=== PATIENT | female | born 1940 | race Caucasian/White ===

== ENCOUNTER → 2018-01-01 13:25 | Outpatient (CLI) | payer MEDICARE, SELFPAY ==
--- NOTE | 2018-01-01 | DI.MG.S_ITS ---
BILATERAL DIGITAL SCREENING MAMMOGRAM 3D/2D WITH CAD: 01/01/2018 CLINICAL: Routine screening. Family history of breast cancer. Comparison is made to exams dated: 12/16/2016 mammogram, 12/10/2015 mammogram, and 12/05/2014 mammogram - [facility]. The tissue of both breasts is heterogeneously dense. This may lower the sensitivity of mammography. Current study was also evaluated with a Computer Aided Detection (CAD) system. There is a new irregular equal density architectural distortion with an indistinct margin in the right breast at 11 o'clock anterior depth. No other significant masses, calcifications, or other findings are seen in either breast. IMPRESSION: INCOMPLETE: NEEDS ADDITIONAL IMAGING EVALUATION The new irregular equal density architectural distortion in the right breast is indeterminate. Mediolateral and spot compression views as well as additional views with possible ultrasound are recommended. This exam was interpreted at Station ID: [id number]. NOTE: For mammograms, a report in lay terms will be sent to the patient. Approximately 15% of breast malignancies will not be visualized mammographically. In the management of a palpable breast mass, a negative mammogram must not discourage biopsy of a clinically suspicious lesion. Electronically Signed By: Sterling prieto/bassem:01/01/2018 16:49:21 letter sent: Additional Imaging Needed ACR BI-RADS Category 0: Incomplete [id number]
== END ==
PROVIDERS: PCP Physician Assistant; Visit Provider Physician Assistant
DX: Z12.31 Encounter for screening mammogram for malignant neoplasm of breast (principal); Z80.3 Family history of malignant neoplasm of breast; R92.8 Other abnormal and inconclusive findings on diagnostic imaging of breast
CPT/HCPCS: 77063; 77067

== ENCOUNTER → 2018-01-15 08:53 | Outpatient (CLI) | payer MEDICARE, SELFPAY ==
--- NOTE | 2018-01-15 | DI.US.S_ITS ---
ULTRASOUND OF RIGHT BREAST: 01/15/2018 CLINICAL: Patient returns for additional imaging over a suspected mass in the right breast. Comparison is made to exams dated: 01/15/2018 mammogram, 01/01/2018 mammogram, and 12/16/2016 mammogram - [facility]. Color flow ultrasound of the right breast was performed. [place] scale images of the real-time examination were reviewed. There is a 2.7 cm x 1.5 cm x 1.3 cm irregular mass with an indistinct margin in the right breast at 10 o'clock middle depth 9 cm from the nipple. No sonographic abnormality in the right axilla including no abnormal lymph nodes on ultrasound. IMPRESSION: SUSPICIOUS OF MALIGNANCY - FOLLOW-UP RECOMMENDED The 2.7 cm x 1.5 cm x 1.3 cm irregular mass in the right breast is suspicious of malignancy. An ultrasound guided biopsy is recommended. Recommend tomosynthesis post biopsy images to demonstrate concordance with mammographic finding. If finding is not concordant, stereotactic biopsy or surgical excision may be needed. Findings and recommendations discussed in person with the patient by Dr. Palencia of the department of radiology at the time of the examination. This exam was interpreted at Station ID: [id number]. Electronically Signed By: Gary Cuadra M.D. cj/:01/15/2018 14:13:30 letter sent: Biopsy Required Ultrasound BI-RADS: 4 Suspicious abnormality
--- NOTE | 2018-01-15 | DI.MG.S_ITS ---
UNILATERAL RIGHT DIGITAL DIAGNOSTIC MAMMOGRAM 3D/2D: 01/15/2018 CLINICAL: Additional evaluation requested from prior study. Family history of breast cancer. Comparison is made to exams dated: 01/01/2018 mammogram, 12/16/2016 mammogram, and 12/10/2015 mammogram - [facility]. The tissue of the right breast is heterogeneously dense. This may lower the sensitivity of mammography. There is 1.5 cm architectural distortion in the right breast at 10 o'clock middle depth. No other significant masses or calcifications are seen in the breast. IMPRESSION: INCOMPLETE: NEEDS ADDITIONAL IMAGING EVALUATION The 1.5 cm architectural distortion in the right breast is indeterminate. An ultrasound is recommended. This exam was interpreted at Station ID: [id number]. NOTE: For mammograms, a report in lay terms will be sent to the patient. Approximately 15% of breast malignancies will not be visualized mammographically. In the management of a palpable breast mass, a negative mammogram must not discourage biopsy of a clinically suspicious lesion. Electronically Signed By: Gary phillips/bassem:01/15/2018 14:10:16 ACR BI-RADS Category 0: Incomplete [id number]
== END ==
PROVIDERS: PCP Physician Assistant; Visit Provider Physician Assistant
DX: R92.2 Inconclusive mammogram (principal); N63.10 Unspecified lump in the right breast, unspecified quadrant; Z80.3 Family history of malignant neoplasm of breast
CPT/HCPCS: 76642; 77065; G0279

== ENCOUNTER → 2018-01-30 12:13 | Outpatient (CLI) | payer MEDICARE, SELFPAY ==
--- NOTE | 2018-01-30 | DI.US.S_ITS ---
ULTRASOUND GUIDED BIOPSY RIGHT BREAST USING VACUUM DEVICE WITH MARKING DEVICE INSERTED AND POST MAMMOGRAPHIC IMAGIN01/30/2018 CLINICAL: Right breast mass. PATIENT CONSENT: Risks (minor bleeding, infection, vasovagal reaction and repeat procedure), benefits and alternatives were explained to the patient and written informed consent was obtained. Correlation is made to exams dated: 01/15/2018 ultrasound, 01/15/2018 mammogram, 01/01/2018 mammogram, 12/16/2016 mammogram, 12/10/2015 mammogram, and 12/05/2014 mammogram - [facility]. An ultrasound guided biopsy using real-time ultrasound was performed for the 1.5 cm x 2.3 cm x 1.7 cm circumscribed oval mass located in the right breast at 10 o'clock middle depth. This was described on the previous mammography and ultrasound reports. The skin was prepped in the usual manner. Local anesthetic was administered to the access site. A skin salma was made in the breast. The abnormality was approached from the lateral aspect. A 13 gauge biopsy needle was placed adjacent to the abnormality under ultrasound guidance. Once the needle was documented to be in the correct location, four specimens were obtained using the Mammotome biopsy system. The patient received additional local anesthetic during the procedure. A titanium clip was inserted into the biopsy cavity. A skin closure strip and a sterile dressing were applied to the access site. Post procedure mammographic imaging demonstrates the clip at the targeted area. The specimens were sent to the laboratory for pathological analysis. IMPRESSION: ULTRASOUND GUIDED BIOPSY BENIGN Ultrasound guided biopsy of the 1.5 cm x 2.3 cm x 1.7 cm mass in the right breast at 10 o'clock middle depth was successful. Pathology results indicated benign breast tissue. However, the results are discordant with the mammographic finding of architectural distortion and a surgical biopsy is recommended of the mammographic finding. Findings discussed with Mary Ann Hinds on 02/07/18 at 11:05 AM. This exam was interpreted at Station ID: [id number]. Blanco tripp,conner/:02/07/2018 11:12:34
--- NOTE | 2018-01-30 | DI.MG.S_ITS ---
UNILATERAL RIGHT DIGITAL DIAGNOSTIC MAMMOGRAM 3D/2D: 01/30/2018 CLINICAL: Right breast mass. Post clip placement. Comparison is made to exams dated: 01/15/2018 mammogram, 01/01/2018 mammogram, and 12/16/2016 mammogram - [facility]. The tissue of the right breast is heterogeneously dense. This may lower the sensitivity of mammography. There is a marker clip in the appropriate position in the right breast at 10 o'clock middle depth. This marker clip placement is at biopsy site. This correlates with ultrasound findings. IMPRESSION: POST PROCEDURE MAMMOGRAM FOR MARKER PLACEMENT There was a successful marker clip placement in the right breast middle depth. This exam was interpreted at Station ID: [id number]. NOTE: For mammograms, a report in lay terms will be sent to the patient. Approximately 15% of breast malignancies will not be visualized mammographically. In the management of a palpable breast mass, a negative mammogram must not discourage biopsy of a clinically suspicious lesion. Electronically Signed By: Blanco tripp/bassem:01/30/2018 16:37:29 ACR BI-RADS Category Post-procedure mammogram for marker placement
== END ==
PROVIDERS: PCP Physician Assistant; Visit Provider Physician Assistant
DX: N63.0 Unspecified lump in unspecified breast (principal)
CPT/HCPCS: 19083; 77065; G0279

== ENCOUNTER 2018-03-15 07:45 | Day surgery (SDC) | payer MEDICARE, SELFPAY ==
[2018-03-02 12:00] VITALS: BMI 27.6
[2018-03-15] VITALS (9 sets, daily range): BP systolic 115–160; BP diastolic 75–93; PULSE 66–89; RESP 12–18; TEMP 36.2–36.3; O2SAT 95–98; BMI 27.6
--- NOTE | 2018-03-15 | PATH_ITS ---
[facility] Accession Number: [id number] . 01 Material submitted: . RIGHT BREAST MASS . 01 Clinical history: . LONG STITCH IS ANTERIOR, SHORT STICH IS MEDIAL . 02 Diagnosis: Right Breast, Mass, Wire Localized Excision: Invasive lobular carcinoma. Please see [facility] Summary Data Below. . CAP CANCER CASE SUMMARY . PROCEDURE: Excision SPECIMEN LATERALITY: Right TUMOR SITE: 10 O'Clock. . TUMOR SIZE: Greatest dimension of largest invasive focus: 2.1 CM HISTOLOGIC TYPE: Invasive lobular carcinoma. HISTOLOGIC GRADE: (Miguel Histologic Score) Glandular/Tubular differentiation: Score 3 Nuclear Pleomorphism: Score 2 Mitotic Rate: Score 1 Overall Grade: Grade 2 TUMOR FOCALITY: Multiple foci of invasive carcinoma Number of foci: 2 Sizes of individual foci: 2.1 CM, 0.5 CM DUCTAL CARCINOMA IN SITU: Not identified. LOBULAR CARCINOMA IN SITU: Present. . TUMOR EXTENSION Skin: Not applicable Nipple: Not applicable Skeletal muscle: Not applicable MARGINS: Invasive Carcinoma Margins: Positive for invasive carcinoma. Inferior: Positive, 1mm extent. Medial: Positive, 11 mm extent. Posterior: Positive, 3mm extent. Superior, Lateral, Anterior: Negative for carcinoma, greater than 5mm. DCIS Margins: No DCIS in specimen. . REGIONAL LYMPH NODES: No lymph nodes submitted or found. TREATMENT EFFECT: No known presurgical therapy. LYMPHOVASCULAR INVASION: Present. DERMAL LYMPHOVASCULAR INVASION: No skin present. . PATHOLOGIC STAGE CLASSIFICATION (pTNM, AJCC 8th Edition, 2017) TNM Descriptors: m (multiple foci of invasive carcinoma) Primary Tumor: pT2 Regional Lymph Nodes: pNX . Additional Pathologic Findings: Fibrocystic changes, biopsy site changes. Microcalcifications: Present in non-neoplastic tissue. . ANCILLARY STUDIES: Estrogen Receptor Status: Positive, Moderate intensity, >95% of cells. Progesterone Receptor Status: Positive, Strong intensity, >95% of cells HER2 (by immunohistochemistry): Negative (Score 1+). JRL/03/20/2018 . 02 Comment: The second mass is 0.5 mm in greatest dimension and is present at (and involves) the posterior margin of the specimen. This lesion is approximately 1.2 cm from the larger mass and by dense fibrous breast tissue with fibrocystic changes and biopsy site. The ER, UT and HER2 results are the same as the larger lesion. . As part of routine quality assurance coach, Dr. Ruiz also reviewed selected H/E slides and agrees with the diagnosis. . 02 Electronically signed: . Charlene Sanchez MD, Pathologist NPI- [id number] . 01 Gross description: . Received in formalin, labeled right breast mass, long stitch anterior, short stitch medial, is a piece of breast tissue (4.8 cm AP, 3.0 cm SI, 3.1 cm ML) with no overlying skin. The specimen is oriented with two black sutures (long-anterior, short-medial). A localization wire enters the central inferoanterior aspect. The specimen is serially sectioned AP into 14 slices with the anterior and posterior resection margins as slices #1 and #14, respectively. The localization wire ends between slices #3 and #4. The breast tissue is fatty and densely fibrous. A sims-white solid firm irregular mass (1.7 x 1.6 x 1.5 cm) is identified in slices #7-11. The mass is 2.1 cm from the anterior, 1.0 cm from the posterior, 2.0 cm from the superior, 0.1 cm from the inferior, 0.1 cm from the medial, and 1.2 cm from the lateral resection margins. A biopsy marker is identified within slice #11 within the mass. No other nodules, masses or lesions are identified. Ink code: purple-anterior; yellow-posterior; black-superior; orange-inferior; green-medial; blue-lateral. Section code: (A1) anterior resection margin, perpendicularly sectioned; (A2) slice #2; (A3) slice #3, tissue involving the localization wire; (A4) slice #4, tissue involving the localization wire; (A5) slice #5; (A6-A7) slice #6, tissue adjacent to mass, bisected and submitted SI; (A8-A9) slice #7, bisected and submitted SI; (A10-A11) slice #8, bisected and submitted SI; (A12-A13) slice #9, bisected and submitted SI; (A14-A15) slice #10, bisected and submitted SI; (A16-A17) slice #11, tissue with biopsy marker, bisected and submitted ML; (A18) slice #12, tissue adjacent to mass; (A19) slice #13; (A20) posterior resection margin, perpendicularly sectioned. Specimen entirely submitted. Note: Approximate total fixation time in formalin-67 hours and 30 minutes calculated using a collection date of 03/15/2018 with no collection time given. ([id number]) /[facility] . 02 Microscopic: . Immunohistochemical stains were performed to characterize the cells of interest. Control stains showed appropriate reactivity. . Results: Block A11: D2-40: Highlights lymphatics, some containing carcinoma cells. . Block A13: ER (SP1): Positive, Moderate intensity, greater than 95% of cells. UT (1E2): Positive, Strong intensity, greater than 95% of cells HER2 (4B5): Negative (Score 1+). E-Cadherin: Negative in the cells of interest. . Block A20: ER (SP1): Positive, Moderate intensity, greater than 95% of cells. UT (1E2): Positive, Strong intensity, greater than 95% of cells HER2 (4B5): Negative (Score 1+). E-Cadherin: Negative in the cells of interest. . Interpretation: The immunophenotype is consistent with lobular carcinoma with lobular carcinoma in situ, and lymphovascular invasion (confirmed by D2-40). . * This test was developed and its performance characteristics determined by [employer]. It has not been cleared or approved by the U.S. Food and Drug Administration. The FDA has determined that such clearance or approval is not necessary. This test is used for clinical purposes. It should not be regarded as investigational or for research. . 02 Pathologist provided ICD-10: C50.911 . 02 CPT . 961462, O83893, [id number] Performed at: 01 [facility] [address] [place] [address] [address], [place], [place] [id number] MD Sterling Pemberton MD Phone: [phone] Performed at: 02 [facility] [address] [place] [id number] MD Karl Beaulieu MD Phone: [phone]
--- NOTE | 2018-03-15 | DI.MG.S_ITS ---
PROCEDURE: MM SURGICAL SPECIAMN RT INDICATIONS: Right breast mass TECHNIQUE: Intraoperative film of the breast surgical specimen acquired. COMPARISON: [facility], MM SCREENING MAMMO BI, 01/01/2018, 13:38. [facility], MM DIAGNOSTIC MAMMO UNILAT RT, 01/30/2018, 13:51. [facility], MM SPECIAL VIEW RT, 01/15/2018, 9:28. [facility], DIAGNOSTIC MAMMO UNILAT RT2D, 03/15/2018, 9:18. FINDINGS: Tip of the localizing wire is present. Also visualized within the specimen are the abnormality and nearby biopsy clip being targeted. IMPRESSION: The targeted abnormality is within the surgical specimen. Dictated by: Jacques Carlson M.D. on 03/15/2018 at 13:46 Approved by: Jacques Carlson M.D. on 03/15/2018 at 14:02
--- NOTE | 2018-03-15 | DI.US.S_ITS ---
NEEDLE LOCALIZATION RIGHT BREAST WITH POST DIGITAL MAMMOGRAPHIC IMAGIN03/15/2018 CLINICAL: Pre-op wire localization. Correlation is made to exams dated: 01/30/2018 mammogram, 01/30/2018 ultrasound biopsy, 01/15/2018 ultrasound, 01/15/2018 mammogram, 01/01/2018 mammogram, and 12/16/2016 mammogram - [facility]. A needle localization was performed for the mass located in the right breast at 10 o'clock middle depth. The skin was prepped in the usual manner. Local anesthetic was administered to the access site. The localization was approached from the lateral aspect. A needle was inserted into the targeted area. Post placement digital mammographic imaging was obtained. IMPRESSION: NEEDLE LOCALIZATION Needle localization for the mass in the right breast at 10 o'clock anterior depth was successful. Waiting for pathology results. A final report will be issued when these become available. This exam was interpreted at Station ID: [id number]. Jacques Carlson M.D. fx/:03/15/2018 16:46:54
--- NOTE | 2018-03-15 | DI.MG.S_ITS ---
UNILATERAL RIGHT DIGITAL DIAGNOSTIC MAMMOGRAM: 03/15/2018 CLINICAL: Right breast mass. Comparison is made to exams dated: 01/30/2018 mammogram, 01/15/2018 mammogram, and 01/01/2018 mammogram - [facility]. The tissue of the right breast is heterogeneously dense. This may lower the sensitivity of mammography. There is a localization wire with the tip close to the targeted lesion and biopsy marking clip in the right breast at 10 o'clock. IMPRESSION: SUSPICIOUS OF MALIGNANCY The targeted lesion is adjacent to the localization wire. This exam was interpreted at Station ID: [id number]. NOTE: For mammograms, a report in lay terms will be sent to the patient. Approximately 15% of breast malignancies will not be visualized mammographically. In the management of a palpable breast mass, a negative mammogram must not discourage biopsy of a clinically suspicious lesion. Electronically Signed By: Jacques Carlson M.D. fx/:03/16/2018 09:29:44 ACR BI-RADS Category 4: Suspicious abnormality [id number]
[2018-03-15] MEDS: LACTATED RINGERS 1,000 ML 42 ML IV (11:32)
[2018-03-15] MEDS: CEFAZOLIN 2 GM/100 ML FROZ.PIGGY IV (12:47)
--- NOTE | 2018-03-15 13:19 | SUR.OPER ---
Supine on padded OR bed, head on pillow, arms secured on padded arm boards at <90 degrees abduction, legs uncrossed, safety belt at thigh, tape over blanket over lower legs.
[2018-03-15] MEDS: BUPIVACAINE 0.5% (PF) VIAL 30 ML INJ (13:26)
--- NOTE | 2018-03-15 14:21 | PM.OP.1 ---
Operative Date/Time/Diagnoses Date of procedure: 03/15/18 Time of procedure: 14:01 Post-op diagnosis: other (Breast mass.) Procedure & Clinicians Procedure: Needle localization lumpectomy Same procedure as scheduled: Yes Indications: See preop diagnosis Surgeon: Marcos Sung Click Yes if Unassisted: Yes Anesthesia Type: General Operative Notes Findings: Clip and wire appeared to be within the specimen. It was difficult to tell due to these exposure whether the spiculated area was in the specimen but clearly the mass that was felt at the time of biopsy was removed. Closure Type: primary Specimen(s): other (Breast tissue with needle and clip) Implants & Drains: None Estimated Blood Loss (mL): 25 Blood products transfused: none Procedure in detail: The patient is placed supine on the operating room table and underwent general LMA anesthesia. She was prepped and draped in the usual fashion. Curvilinear incision was made overlying the mass this extended to the area of the needle insertion. Using needle and palpation as a guide I removed the tissue that was felt to represent the abnormality. The mass that I could feel was hard and smoothly lobulated. I could not tell if this was the nature of the mass aware that these were post biopsy changes. In any event the lesion was removed and the specimen submitted for mammography. It appeared that the clip and the wire were clearly in the specimen and it was felt the mass was probably there is well though the exposure on the film limited interpretation. The space was partially closed with a 3 0 Polysorb. The skin was closed with a running 4 0 Polysorb subcuticular stitch and Steri-Strips patient tolerated the procedure well. Complications: none Condition: stable Disposition: PACU Plan for aftercare: Follow-up in the office
[2018-03-15] MEDS: OXYCODONE/ACETAMINOPHEN 5/325 TABLET 1 TAB PO (14:26)
== END 2018-03-15 15:01 | disposition home or self-care (01) ==
PROVIDERS: PCP Physician Assistant; Visit Provider Specialist
PROC: (CPT 19301; principal; 2018-03-15 11:00)
DX: C50.911 Malignant neoplasm of unspecified site of right female breast (principal); N63.10 Unspecified lump in the right breast, unspecified quadrant; Z80.3 Family history of malignant neoplasm of breast; Z87.891 Personal history of nicotine dependence; Z17.0 Estrogen receptor positive status [ER+]
CPT/HCPCS: 19301; 19285; 76098; 77065; J0690; J1100; J2250; J2405; J2704; J3010

== ENCOUNTER → 2018-04-04 10:12 | Outpatient (CLI) | payer MEDICARE, SELFPAY ==
[2018-04-04 11:28] LABS: Hematocrit 32.8 % (36-46); Hemoglobin 11.1 g/dL (12.0-16.0)
[2018-04-04 11:38] LABS: BUN Creatinine Ratio 16.4 (6-22); Blood Urea Nitrogen 23 mg/dL (7-17); Calcium 9.2 mg/dL (8.4-10.2); Carbon Dioxide 26 mmol/L (22-32); Chloride 104 mmol/L (98-107); Estimated Glomerular Filt Rate 36.7 mL/min (>60); Glucose 135 mg/dL (80-110); HEMOLYSIS < 15 (0-50); Sodium 138 mmol/L (137-145)
[2018-04-04 12:01] LABS: HEMOLYSIS < 15 (0-50); Iron 48 ug/dL (37-170)
[2018-04-04 12:04] LABS: Creatinine Urine Random 62.9 mg/dL; Protein (Total) Urine Random 28 mg/dL (0-12); Protein Creatinine Ratio Urine 0.44 GRAM/24H
[2018-04-04 12:13] LABS: Percent Iron Saturation 12 % (15-50); Total Iron Binding Capacity 387 ug/dL (265-497); Transferrin 324 mg/dL (206-381)
[2018-04-04 12:14] LABS: Ferritin 25.3 ng/mL (11.1-264)
[2018-04-06 14:30] LABS: Parathyroid Hormone Int 120 pg/mL (14-64)
== END ==
PROVIDERS: PCP Physician Assistant; Visit Provider Student in an Organized Health Care Education/Training Program
DX: N00.9 Acute nephritic syndrome with unspecified morphologic changes (principal); D50.0 Iron deficiency anemia secondary to blood loss (chronic); D64.9 Anemia, unspecified; N25.81 Secondary hyperparathyroidism of renal origin; R80.9 Proteinuria, unspecified
CPT/HCPCS: 36415; 80048; 82570; 82728; 83540; 83550; 83970; 84156; 85014; 85018

== ENCOUNTER 2018-04-05 07:20 | Day surgery (SDC) | payer MEDICARE, SELFPAY ==
[2018-04-04 07:43] VITALS: BMI 27.6
[2018-04-05] VITALS (12 sets, daily range): BP systolic 132–166; BP diastolic 67–84; PULSE 65–80; RESP 8–18; TEMP 36.2–36.6; O2SAT 88–98; BMI 27.6
--- NOTE | 2018-04-05 | PATH_ITS ---
[facility] Accession Number: [id number] . 01 Material submitted: . PART A: RIGHT BREAST MASS PART B: RIGHT BREAST MASS - MEDIAL AND POSTERIOR MARGINS PART C: SENTINEL NODES RIGHT . 01 Clinical history: . A: LONG STITCH IS SUPERIOR, SHORT STITCH IS LATERAL B: STITCH HERNANDES CAVITY SIDE C: 2 HOT NODES, STITCH HERNANDES HOTTEST NODE, 1394 . 02 Diagnosis: A. Right Breast Mass, Reexcision: Focus of residual lobular breast carcinoma, 0.5 cm. Margins negative for carcinoma. Closest margin: Carcinoma is within 0.2 cm of inferior margin. Negative for ductal or lobular carcinoma in situ. . B. Right Breast Mass, Medial and Posterior Margins, Reexcision: Breast parenchyma with no diagnostic abnormality. Negative for atypical hyperplasia, in situ or invasive carcinoma. . C. [place] Lymph Nodes, Right, Biopsies: One of two sentinel lymph nodes positive for isolated tumor cells, highlighted on MAURICE immunostain. Negative for micro or macrometastases. Minimum pathologic stage: pN0(i+). V/04/11/2018 . 02 Comment: As part of routine quality systems technician, Dr. Ruiz has reviewed blocks A8, C1 and C3, and agrees with the above diagnosis. . 02 Electronically signed: . Eliot Hu MD, PhD, Pathologist NPI- [id number] . 01 Gross description: . (A) Received in formalin, labeled right breast mass, long stitch superior, short stitch lateral, is a piece of breast tissue (4.6 cm AP, 5.9 cm SI, 9.8 cm ML) partially covered by skin (1.0 cm SI, 3.5 cm ML). The specimen is oriented with two black sutures (long-superior, short-lateral). No localization wire is present. The specimen is serially sectioned ML into 30 slices with the medial and lateral resection margins as slices #1 and #30, respectively. A biopsy cavity (6.5 cm in greatest dimension) is identified within slices #1-21, 1.0 cm from the skin surface, 0.2 cm from the posterior, 0.5 cm from the superior, 0.8 cm from the inferior, 0.4 cm from the medial, and 2.9 cm from the lateral resection margins. A sims-bhandari solid firm irregular mass (1.5 x 0.8 x 0.7 cm) is identified within slices #21-23, 0.2 cm anterior to the cavity within slice #21. The mass is 0.2 cm from the anterior, 2.6 cm from the posterior, 4.1 cm from the superior, 1.8 cm from the inferior, 6.9 cm from the medial, and 2.3 cm from the lateral resection margins. The remaining breast tissue is fatty and unremarkable. The skin is bhandari and contains a 2.6 cm linear scar and is, otherwise, unremarkable. Ink code: purple-anterior; yellow-posterior; black-superior; orange-inferior; green-medial; blue-lateral. Section code: (A1) medial resection margin with cavity, perpendicularly sectioned, telecommunications sales representative; (A2) slice #5, telecommunications sales representative; (A3) slice #6, telecommunications sales representative; (A4) slice #7, telecommunications sales representative; (A5) slice #9, telecommunications sales representative; (A6) slice #10, telecommunications sales representative; (A7) slice #12, telecommunications sales representative; (A8) slice #17, telecommunications sales representative; (A9) slice #20, tissue adjacent to mass; (A10) slice #21, mass and cavity; (A11) slice #22, telecommunications sales representative; (A12-A14) slice #23, trisected and entirely submitted SI; (A15-A17) slice #24, tissue adjacent to mass, trisected and entirely submitted AP; (A18) lateral resection margin, perpendicularly sectioned, telecommunications sales representative; (A19) slice #16, telecommunications sales representative; (A20) additional sample from slice #7; (A21) slice #18, telecommunications sales representative. Note: The gross specimen is reviewed by Dr. Eliot Hu on 04/10/2018 and additional samples were submitted for histologic evaluation. ([id number]) (B) Received in formalin, labeled right breast mass, medial + posterior margins, stitch hernandes cavity side, is a piece of breast tissue (12.5 x 3.5 x 0.9 cm) with no overlying skin. A two-tailed black suture indicates the cavity side. No localization wire is present. The breast tissue is fibrofatty with no nodules, masses or lesions identified. The resection margin is inked black, and the cavity side is not inked. Serially sectioned and entirely submitted in cassettes B1-B10. (C) Received in formalin, labeled sentinel node right-two hot nodes, stitch hernandes hottest node, 1394, is a piece of bhandari-yellow adipose tissue (5.5 x 5.0 x 1.2 cm) containing multiple possible lymph nodes (0.1 x 0.1 x 0.1 cm-1.3 x 1.1 x 0.7 cm). A black suture indicates the hottest node. Section code: (C1) hottest node, bisected; (C2) multiple intact lymph nodes; (C3) one lymph node, serially sectioned. . Note: Approximate total fixation time in formalin for all specimens-66 hours and 30 minutes calculated using a collection date of 04/05/2018 with no collection time given. ([id number]) /[facility] . 02 Microscopic: . Part C: MAURICE immunohistochemical stains are performed on the sentinel lymph nodes submitted in blocks A1 and A3. A focus of isolated tumor cells is highlighted in block C3. There is no evidence of metastatic carcinoma in block C1. A control stain shows appropriate reactivity. . * This test was developed and its performance characteristics determined by [employer]. It has not been cleared or approved by the U.S. Food and Drug Administration. The FDA has determined that such clearance or approval is not necessary. This test is used for clinical purposes. It should not be regarded as investigational or for research. . 02 Pathologist provided ICD-10: C50.911 . 02 CPT . 141613, 860647, 118157, Y45016 Performed at: 01 [facility] [address] [facility], [place], [place] [id number] MD Sterling Pemberton MD Phone: [phone] Performed at: 02 [facility] [place] [id number] [place] [id number] MD Karl Beaulieu MD Phone: [phone]
--- NOTE | 2018-04-05 08:00 | DI.NM.S_ITS ---
PROCEDURE: NM SENTINEL NODE W IMAGING RADIOPHARMACEUTICAL: 0.5-1.0 mCi Millipore filtered Tc-99m sulfur colloid. INDICATIONS: localization of sentinel node TECHNIQUE: The area around the nipple was prepped and draped in a sterile fashion. Tc-99m sulfur colloid was injected intra-dermally in the outer edge of the areola in the right breast. Images were obtained subsequently. A body contour outline was obtained. FINDINGS: There is one lymph node(s) in the ipsilateral axilla, which is marked on the skin and the images for referring physician. IMPRESSION: Administration of radiotracer into the right breast periareolar region for intra-operative sentinel lymph node localization. Dictated by: Germain Rodriguez M.D. on 04/05/2018 at 9:26 Approved by: Germain Rodriguez M.D. on 04/05/2018 at 9:30
--- NOTE | 2018-04-05 09:53 | PM.PREOP ---
Pre-operative Note Interval Note Pre-op Check: Yes History & Physical exam performed today by Physician Changes: No
--- NOTE | 2018-04-05 09:55 | PM.HP.1 ---
History of Present Illness Date Patient Seen: 04/05/18 Time Patient Seen: 09:39 Chief complaint: lumpectomy sentinel node [id number] Narrative: Patient is woman with biopsy-proven breast cancer who is here for excision of margins and a sentinel node biopsy. She had had an attempt at a minimally invasive biopsy that was not diagnostic in because of the appearance of the lesion request was made for excision. She has undergone a needle localization and lumpectomy and now will have a re-excision and sentinel node biopsies since the diagnosis is now confirmed as cancer. Patient History Medical History History of seizure disorder (Chronic) Abnormal mammogram of right breast (Acute) Breast cancer, right (Acute) Collapsed lung (Acute) GERD (gastroesophageal reflux disease) (Acute) Hyperlipidemia (Acute) Hypertension (Acute) Hypothyroid (Acute) Kidney stones (Acute) Pneumonia (Acute) Pre-diabetes (Acute) Sleep apnea (Acute) Subdural hematoma (Acute) History of kidney stones (Resolved) History of subdural hematoma (Resolved) Surgical History H/O right breast biopsy (Acute) Status post cataract extraction of both eyes with insertion of intraocular lens (Acute) H/O hysterectomy for benign disease (Resolved) History of left cataract surgery (Resolved) History of tonsillectomy (Resolved) Status post right breast biopsy (Resolved) Family & Social History Social History: household members none Tobacco & Substance use: Tobacco type cigarettes Smoking Status Former smoker alcohol intake current alcohol intake frequency 0-2 drinks per day Substance Use Type does not use Meds Home Medications Medication Instructions Recorded Confirmed Type allopurinol 300 mg tablet 300 mg PO DAILY 02/28/18 04/05/18 History amlodipine 5 mg tablet 5 mg PO DAILY 02/28/18 04/05/18 History ascorbic acid (vitamin C) 500 mg 500 mg PO DAILY cap 02/28/18 04/05/18 History capsule calcitriol 1 cap/day PO DAILY 02/28/18 04/05/18 History cholecalciferol (vitamin D3) 2,000 2,000 unit PO DAILY 02/28/18 04/05/18 History unit capsule colchicine 0.6 mg capsule 0.6 mg PO DAILY 02/28/18 04/05/18 History cyclobenzaprine 10 mg tablet 10 mg PO TID 02/28/18 03/28/18 History estradiol 1 mg tablet 1 mg PO DAILY 02/28/18 04/05/18 History hydrocodone 5 mg-acetaminophen 325 1 tab PO Q6H PRN 02/28/18 04/05/18 History mg tablet levetiracetam 500 mg tablet 500 mg PO Q12H 02/28/18 03/28/18 History levothyroxine 75 mcg tablet 75 mcg PO DIRECTED 02/28/18 04/05/18 History losartan 25 mg tablet 25 mg PO DAILY 02/28/18 04/05/18 History omeprazole 40 mg capsule,delayed 40 mg PO DAILY 02/28/18 04/05/18 History release senna 2 tab PO .qhs PRN 02/28/18 04/05/18 History simvastatin 10 mg tablet 10 mg PO QPM 02/28/18 04/05/18 History sodium bicarbonate 325 mg tablet 20 g PO DAILY tab 02/28/18 04/05/18 History cyclobenzaprine 10 mg PO DAILY PRN 04/04/18 04/04/18 History temazepam 30 mg PO BEDTIME PRN 04/04/18 04/05/18 History Allergies Allergy/AdvReac Type Severity Reaction Status Date / Time No Known Drug Allergies Allergy Verified 03/28/18 13:03 Review of Systems Review of Systems All systems reviewed & are unremarkable except as noted in HPI and below Exam Vital Signs (past 8 hours): - 04/05/18 07:38 Temperature 97.6 F Pulse Rate 73 Respiratory Rate 16 Blood Pressure 145/78 H Pulse Oximetry 96 Oxygen Delivery Method Room Air Narrative Exam Narrative: Operative no apparent distress. Biopsy site well healed. No cellulitis. The scars in the right upper outer quadrant of the right breast the patient is lungs are clear to auscultation without rales or rhonchi heart regular rate and rhythm without murmur gallop no nodes were felt in the axilla or supraclavicular area. Patient is alert and oriented x3 speech rate and content are appropriate Assessment & Plan Plan: Assessment/Plan Narrative: Patient with positive margins on a biopsy specimen will proceed to excision of the margins and sentinel node biopsy. She has had injection of radionucleotide. I discussed the procedure with her the possibility of positive margins discussed again. Also the removal lymph node with swelling and possible numbness of the arm she wishes to proceed. She understands she will need radiation and possibly chemotherapy and of dictation
[2018-04-05] MEDS: CEFAZOLIN 2 GM/100 ML FROZ.PIGGY IV (09:59)
--- NOTE | 2018-04-05 10:23 | SUR.OPER ---
Supine on padded OR bed, head on pillow, arms secured on padded arm boards at <90 degrees abduction, legs uncrossed, safety belt at thigh, tape over blanket over lower legs.
[2018-04-05] MEDS: BUPIVACAINE 0.5% (PF) VIAL 30 ML INJ (10:30)
--- NOTE | 2018-04-05 11:44 | PM.OP.1 ---
Operative Date/Time/Diagnoses Date of procedure: 04/05/18 Time of procedure: 11:44 Pre-op diagnosis: Right-sided breast cancer post biopsy with positive margins Post-op diagnosis: same Procedure & Clinicians Procedure: Reexcision of biopsy site/quadrantectomy Same procedure as scheduled: Yes Indications: Positive biopsy with positive margins. Patient desired breast conservation Surgeon: Marcos Sung Click Yes if Unassisted: Yes Anesthesia Type: General Operative Notes Findings: Appeared to remove the entire cavity of the biopsy with generous margins Closure Type: primary Specimen(s): other (The quadrant of the breast) Estimated Blood Loss (mL): 15 Blood products transfused: none Procedure in detail: The patient was placed supine on the operating room table and underwent general LMA anesthesia. She was prepped and draped in the usual fashion. An elliptical incision was made around her prior biopsy site to remove the scar. It was carried down and the subcu. I excised the prior biopsy cavity completely trying to stay completely away from it. At 1 point I did have entry in the medial/medial posterior aspect. I removed the specimen and removed the medial/medial posterior margin and submitted separately. Meticulous hemostasis was achieved. In removing this specimen laterally I it entered into the axilla. Therefore I obtained the a navigator and identified an area of positivity. I removed 2 nodes in this area 1 adjacent to the other. These were the only hot nodes in the axilla. The stronger of the 2 was marked with a suture. The other was immediately adjacent. The wound was copiously irrigated and clips applied to the cavity. This was a rather large biopsy cavity and was not easily amenable to closing. Therefore the subcu was closed with interrupted 3 0 Polysorb and skin was closed running for Polysorb subcuticular stitch and Steri-Strips. Dressing was applied the patient appeared to tolerate the procedure well. There are no apparent complications Complications: none Condition: stable Disposition: PACU Plan for aftercare: Follow-up in the office
--- NOTE | 2018-04-05 11:57 | SUR.PHASEI ---
report to kathy treviño
--- NOTE | 2018-04-05 11:59 | SUR.PHASEI ---
Report received. Bertha cdi. IV patent. SCDs applied.
[2018-04-05] MEDS: fentaNYL 100 MCG/2 ML INJ 25 MCG IV (12:03)
--- NOTE | 2018-04-05 12:16 | SUR.PHASEI ---
Pt very drowsy, arouses easily but keeps eyes closed and has slow movements. Reported pain improved to 4/10.
[2018-04-05] MEDS: OXYCODONE/ACETAMINOPHEN 5/325 TABLET 1 TAB PO (12:38)
== END 2018-04-05 13:15 | disposition home or self-care (01) ==
PROVIDERS: Family Provider Physician Assistant; PCP Physician Assistant; Visit Provider Specialist
PROC: (CPT 19301; principal; 2018-04-05 09:45)
DX: C50.911 Malignant neoplasm of unspecified site of right female breast (principal); Z87.891 Personal history of nicotine dependence
CPT/HCPCS: 19301; 38500; 78195; A9541; J0690; J1100; J2250; J2405; J2704; J3010

== ENCOUNTER → 2018-05-03 10:28 | Outpatient (CLI) | payer MEDICARE, SELFPAY | PROVIDERS: Family Provider Physician Assistant; PCP Physician Assistant; Visit Provider Specialist | DX: N64.89 Other specified disorders of breast (principal) | CPT/HCPCS: 87070; 87075; 87205 ==

== ENCOUNTER → 2018-10-17 09:40 | Outpatient (CLI) | payer MEDICARE, SELFPAY ==
[2018-10-17 10:08] LABS: Hematocrit 38.7 % (36-46); Hemoglobin 12.6 g/dL (12.0-16.0)
[2018-10-17 10:32] LABS: HEMOLYSIS < 15 (0-50); Iron 90 ug/dL (37-170)
[2018-10-17 10:35] LABS: BUN Creatinine Ratio 22.9 (6-22); Blood Urea Nitrogen 39 mg/dL (7-17); Calcium 12.1 mg/dL (8.4-10.2); Carbon Dioxide 24 mmol/L (22-32); Chloride 104 mmol/L (98-107); Estimated Glomerular Filt Rate 29.3 mL/min (>60); Glucose 129 mg/dL (80-110); HEMOLYSIS < 15 (0-50); Potassium 5.1 mmol/L (3.4-5.1); Sodium 138 mmol/L (137-145)
[2018-10-17 10:41] LABS: Creatinine Urine Random 70.1 mg/dL; Protein (Total) Urine Random 20 mg/dL (0-12); Protein Creatinine Ratio Urine 0.28 GRAM/24H
[2018-10-17 10:43] LABS: Percent Iron Saturation 23 % (15-50); Total Iron Binding Capacity 391 ug/dL (265-497); Transferrin 320 mg/dL (206-381)
[2018-10-17 11:10] LABS: Ferritin 49.8 ng/mL (11.1-264)
[2018-10-18 15:13] LABS: Parathyroid Hormone Int 22 pg/mL (14-64)
== END ==
PROVIDERS: Family Provider Physician Assistant; PCP Physician Assistant; Visit Provider Student in an Organized Health Care Education/Training Program
DX: N05.9 Unspecified nephritic syndrome with unspecified morphologic changes (principal); D50.0 Iron deficiency anemia secondary to blood loss (chronic); D64.9 Anemia, unspecified; N25.81 Secondary hyperparathyroidism of renal origin; R80.9 Proteinuria, unspecified
CPT/HCPCS: 36415; 80048; 82570; 82728; 83540; 83550; 83970; 84156; 85014; 85018

== ENCOUNTER → 2018-10-31 10:22 | Outpatient (CLI) | payer MEDICARE, SELFPAY ==
[2018-10-31 11:13] LABS: BUN Creatinine Ratio 18.1 (6-22); Blood Urea Nitrogen 29 mg/dL (7-17); Calcium 10.6 mg/dL (8.4-10.2); Carbon Dioxide 21 mmol/L (22-32); Chloride 107 mmol/L (98-107); Estimated Glomerular Filt Rate 31.4 mL/min (>60); Glucose 103 mg/dL (80-110); HEMOLYSIS < 15 (0-50); Potassium 5.1 mmol/L (3.4-5.1); Sodium 138 mmol/L (137-145)
== END ==
PROVIDERS: PCP Physician Assistant; Visit Provider Student in an Organized Health Care Education/Training Program
DX: N05.9 Unspecified nephritic syndrome with unspecified morphologic changes (principal)
CPT/HCPCS: 36415; 80048

== ENCOUNTER → 2018-11-28 13:27 | Outpatient (CLI) | payer MEDICARE, SELFPAY ==
[2018-11-28 14:08] LABS: BUN Creatinine Ratio 13.1 (6-22); Blood Urea Nitrogen 21 mg/dL (7-17); Calcium 9.5 mg/dL (8.4-10.2); Carbon Dioxide 22 mmol/L (22-32); Chloride 105 mmol/L (98-107); Estimated Glomerular Filt Rate 31.4 mL/min (>60); Glucose 140 mg/dL (80-110); HEMOLYSIS < 15 (0-50); Potassium 3.9 mmol/L (3.4-5.1); Sodium 138 mmol/L (137-145)
[2018-11-28 16:01] LABS: Protein (Total) Urine Random 20 mg/dL (0-12)
[2018-11-28 16:09] LABS: Creatinine Urine Random 101.5 mg/dL; Protein Creatinine Ratio Urine 0.19 GRAM/24H
[2018-12-01 16:17] LABS: Parathyroid Hormone Int 102 pg/mL (14-64)
== END ==
PROVIDERS: PCP Physician Assistant; Visit Provider Student in an Organized Health Care Education/Training Program
DX: N05.9 Unspecified nephritic syndrome with unspecified morphologic changes (principal); N25.81 Secondary hyperparathyroidism of renal origin; R80.9 Proteinuria, unspecified
CPT/HCPCS: 36415; 80048; 82570; 83970; 84156

== ENCOUNTER → 2018-12-03 09:57 | Outpatient (CLI) | payer MEDICARE, SELFPAY | PROVIDERS: PCP Physician Assistant; Visit Provider Internal Medicine Hematology & Oncology | DX: C50.411 Malignant neoplasm of upper-outer quadrant of right female breast (principal); Z78.0 Asymptomatic menopausal state; E07.9 Disorder of thyroid, unspecified; E11.9 Type 2 diabetes mellitus without complications; Z90.722 Acquired absence of ovaries, bilateral; Z17.0 Estrogen receptor positive status [ER+]; Z87.891 Personal history of nicotine dependence | CPT/HCPCS: 77080 ==

== ENCOUNTER → 2019-01-16 12:55 | Outpatient (CLI) | payer MEDICARE, SELFPAY ==
--- NOTE | 2019-01-16 | DI.MG.S_ITS ---
BILATERAL DIGITAL SCREENING MAMMOGRAM 3D/2D WITH CAD POST LUMPECTOMY POST-RADIATION THERAPY: 01/16/2019 Comparison is made to exams dated: 03/15/2018 mammogram, 03/15/2018 localization, and 01/30/2018 mammogram - [facility]. The tissue of both breasts is heterogeneously dense. This may lower the sensitivity of mammography. Current study was also evaluated with a Computer Aided Detection (CAD) system. There are benign post operative findings in the right breast. No significant masses, calcifications, or other findings are seen in either breast. There has been no significant interval change. IMPRESSION: There is no mammographic evidence of malignancy. A 1 year screening mammogram is recommended. This exam was interpreted at Station ID: [id number]. NOTE: For mammograms, a report in lay terms will be sent to the patient. Approximately 15% of breast malignancies will not be visualized mammographically. In the management of a palpable breast mass, a negative mammogram must not discourage biopsy of a clinically suspicious lesion. Electronically Signed By: Sterling prieto/bassem:01/16/2019 17:27:28 letter sent: Normal Exam ACR BI-RADS Category 2: Benign Finding(s) [id number]
== END ==
PROVIDERS: PCP Student in an Organized Health Care Education/Training Program; Visit Provider Student in an Organized Health Care Education/Training Program
DX: Z12.31 Encounter for screening mammogram for malignant neoplasm of breast (principal)
CPT/HCPCS: 77063; 77067

== ENCOUNTER → 2019-02-26 12:58 | Outpatient (CLI) | payer MEDICARE, SELFPAY ==
[2019-02-26 13:20] LABS: Hematocrit 38.8 % (36-46); Hemoglobin 12.8 g/dL (12.0-16.0)
[2019-02-26 13:43] LABS: BUN Creatinine Ratio 16.7 (6-22); Blood Urea Nitrogen 30 mg/dL (7-17); Calcium 10.4 mg/dL (8.4-10.2); Carbon Dioxide 25 mmol/L (22-32); Chloride 106 mmol/L (98-107); Estimated Glomerular Filt Rate 27.4 mL/min (>60); Glucose 88 mg/dL (80-110); HEMOLYSIS < 15 (0-50); Potassium 4.1 mmol/L (3.4-5.1); Sodium 141 mmol/L (137-145)
[2019-02-26 16:57] LABS: Creatinine Urine Random 85.1 mg/dL; Protein (Total) Urine Random 27 mg/dL (0-12); Protein Creatinine Ratio Urine 0.31 GRAM/24H
[2019-02-28 15:15] LABS: Parathyroid Hormone Int 98 pg/mL (14-64)
== END ==
PROVIDERS: PCP Student in an Organized Health Care Education/Training Program; Visit Provider Student in an Organized Health Care Education/Training Program
DX: N05.9 Unspecified nephritic syndrome with unspecified morphologic changes (principal); D64.9 Anemia, unspecified; N25.81 Secondary hyperparathyroidism of renal origin; R80.9 Proteinuria, unspecified
CPT/HCPCS: 36415; 80048; 82570; 83970; 84156; 85014; 85018

== ENCOUNTER → 2019-04-29 11:14 | Outpatient (CLI) | payer MEDICARE, SELFPAY ==
--- NOTE | 2019-04-29 | DI.RAD.S_ITS ---
PROCEDURE: XR KNEE RT 1TO2V INDICATIONS: pain in right knee TECHNIQUE: 2 views of the knee were acquired. COMPARISON: [facility], , KNEE 3V RIGHT, 01/21/2009, 9:07. FINDINGS: Bones: No acute fracture or dislocation. Mild medial compartment degenerative change with minimal joint space loss. Soft tissues: Small joint effusion. No suspicious soft tissue calcifications. IMPRESSION: Right knee without acute osseous abnormalities. Mild medial compartment degenerative change with minimal joint space loss. Small joint effusion noted. Dictated by: Valentín Johnson M.D. on 04/29/2019 at 13:06 Approved by: Valentín Johnson M.D. on 04/29/2019 at 13:08
--- NOTE | 2019-04-29 | DI.RAD.S_ITS ---
PROCEDURE: XR KNEE LT 1TO2V INDICATIONS: pain in left knee TECHNIQUE: 2 views of the knee were acquired. COMPARISON: [facility], , KNEE 3V LEFT, 01/21/2009, 9:07. [facility], , KNEE 3V RIGHT, 01/21/2009, 9:07. FINDINGS: Bones: No acute fracture or malalignment. Stable radiographic appearance of mild medial compartment degenerative change. Stable enthesophyte off the superior pole of the patella likely sequela of chronic quadriceps tendinopathy. Soft tissues: No joint effusion. No suspicious soft tissue calcifications. IMPRESSION: Left knee without acute osseous abnormalities. Minimal medial compartment degenerative change. 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 Dictated by: Valentín Johnson M.D. on 04/29/2019 at 13:04 Approved by: Valentín Johnson M.D. on 04/29/2019 at 13:06
--- NOTE | 2019-04-29 | DI.RAD.S_ITS ---
PROCEDURE: XR CHEST 2V INDICATIONS: cough TECHNIQUE: 2 views of the chest were acquired. COMPARISON: [facility], CHEST 2 VIEW, 10/05/2008, 10:08. [facility], CHEST 1 VIEW, 02/22/2017, 18:17. FINDINGS: Surgical changes and devices: Surgical clips in the lower neck, unchanged. Lungs and pleura: Mild diffuse interstitial prominence, likely chronic in etiology. No focal consolidation. No pleural effusions or pneumothorax. Mediastinum: Mediastinal contours are normal. Heart size is normal. Bones and chest wall: No suspicious bony abnormalities. Soft tissues appear unremarkable. IMPRESSION: Mild diffuse interstitial prominence without focal consolidation. Findings may represent chronic interstitial disease. Otherwise, no acute cardiopulmonary abnormalities identified. Dictated by: Valentín Johnson M.D. on 04/29/2019 at 13:02 Approved by: Valentín Johnson M.D. on 04/29/2019 at 13:03
== END ==
PROVIDERS: PCP Student in an Organized Health Care Education/Training Program; Visit Provider Student in an Organized Health Care Education/Training Program
DX: M25.561 Pain in right knee (principal); M25.562 Pain in left knee; R05 Cough
CPT/HCPCS: 71046; 73560

== ENCOUNTER → 2019-05-01 09:09 | Outpatient (CLI) | payer MEDICARE, SELFPAY ==
[2019-05-01 11:13] LABS: HEMOLYSIS < 15 (0-50); Sodium 138 mmol/L (137-145)
[2019-05-01 11:14] LABS: BUN Creatinine Ratio 10.6 (6-22); Blood Urea Nitrogen 17 mg/dL (7-17); Calcium 9.2 mg/dL (8.4-10.2); Carbon Dioxide 30 mmol/L (22-32); Chloride 98 mmol/L (98-107); Estimated Glomerular Filt Rate 31.3 mL/min (>60); Glucose 83 mg/dL (80-110); Potassium 3.6 mmol/L (3.4-5.1)
[2019-05-03 16:38] LABS: Parathyroid Hormone Int 81 pg/mL (14-64)
== END ==
PROVIDERS: PCP Student in an Organized Health Care Education/Training Program; Visit Provider Student in an Organized Health Care Education/Training Program
DX: N05.9 Unspecified nephritic syndrome with unspecified morphologic changes (principal); N25.81 Secondary hyperparathyroidism of renal origin
CPT/HCPCS: 36415; 80048; 83970

== ENCOUNTER → 2019-08-15 15:09 | Outpatient (CLI) | payer MEDICARE, SELFPAY ==
[2019-08-15 16:23] LABS: Hematocrit 39.1 % (36-46)
[2019-08-15 16:36] LABS: BUN Creatinine Ratio 12.9 (6-22); Blood Urea Nitrogen 22 mg/dL (7-17); Calcium 9.4 mg/dL (8.4-10.2); Carbon Dioxide 27 mmol/L (22-32); Chloride 104 mmol/L (98-107); Estimated Glomerular Filt Rate 29.2 mL/min (>60); Glucose 100 mg/dL (80-110); HEMOLYSIS < 15 (0-50); Potassium 4.1 mmol/L (3.4-5.1); Sodium 141 mmol/L (137-145)
[2019-08-15 17:53] LABS: Creatinine Urine Random 167.9 mg/dL; Protein (Total) Urine Random 82 mg/dL (0-12); Protein Creatinine Ratio Urine 0.48 GRAM/24H
[2019-08-17 17:01] LABS: Parathyroid Hormone Int 24 pg/mL (14-64)
[2019-08-18 09:54] LABS: Levetiracetam Keppra 22.3 mcg/mL (12.0-46.0)
== END ==
PROVIDERS: PCP Student in an Organized Health Care Education/Training Program; Referring Provider Student in an Organized Health Care Education/Training Program; Visit Provider Psychiatry & Neurology Neurology
DX: N05.9 Unspecified nephritic syndrome with unspecified morphologic changes (principal); R80.9 Proteinuria, unspecified; D64.9 Anemia, unspecified; N25.81 Secondary hyperparathyroidism of renal origin; G40.109 Localization-related (focal) (partial) symptomatic epilepsy and epileptic syndromes with simple partial seizures, not intractable, without status epilepticus
CPT/HCPCS: 36415; 80048; 80177; 82570; 83970; 84156; 85014; 85018

== ENCOUNTER → 2019-08-16 11:38 | Outpatient (CLI) | payer MEDICARE, SELFPAY ==
--- NOTE | 2019-08-16 | DI.RAD.S_ITS ---
PROCEDURE: XR CHEST 2V INDICATIONS: cough TECHNIQUE: 2 views of the chest were acquired. COMPARISON: [facility], CR, XR CHEST 2V, 04/29/2019, 11:18. FINDINGS: Surgical changes and devices: Thyroid region clips Lungs and pleura: Lungs are clear. No pleural effusions or pneumothorax. Mediastinum: Mediastinal contours are normal. Heart size is normal. Bones and chest wall: No suspicious bony abnormalities. Soft tissues appear unremarkable. IMPRESSION: No evidence acute pulmonary process. Dictated by: Jordan Rodríguez M.D. on 08/16/2019 at 12:42 Approved by: Jordan Rodríguez M.D. on 08/16/2019 at 12:42
== END ==
PROVIDERS: PCP Student in an Organized Health Care Education/Training Program; Visit Provider Student in an Organized Health Care Education/Training Program
DX: J20.9 Acute bronchitis, unspecified (principal); R05 Cough
CPT/HCPCS: 71046

== ENCOUNTER → 2019-12-14 08:09 | Outpatient (CLI) | payer MEDICARE, SELFPAY ==
[2019-12-14 09:05] LABS: Hematocrit 37.6 % (36-46); Hemoglobin 12.4 g/dL (12.0-16.0)
[2019-12-14 09:18] LABS: BUN Creatinine Ratio 12.2 (6-22); Blood Urea Nitrogen 19 mg/dL (7-17); Calcium 9.5 mg/dL (8.4-10.2); Carbon Dioxide 27 mmol/L (22-32); Chloride 104 mmol/L (98-107); Estimated Glomerular Filt Rate 32.3 mL/min (>60); Glucose 165 mg/dL (80-110); HEMOLYSIS < 15 (0-50); Potassium 3.9 mmol/L (3.4-5.1); Sodium 139 mmol/L (137-145)
[2019-12-14 09:39] LABS: Protein (Total) Urine Random 122 mg/dL (0-12)
[2019-12-14 09:40] LABS: Creatinine Urine Random 202.4 mg/dL
[2019-12-15 07:35] LABS: Parathyroid Hormone Int 77 pg/mL (15-65)
== END ==
PROVIDERS: PCP Student in an Organized Health Care Education/Training Program; Referring Provider Student in an Organized Health Care Education/Training Program; Visit Provider Student in an Organized Health Care Education/Training Program
DX: N05.9 Unspecified nephritic syndrome with unspecified morphologic changes (principal); D64.9 Anemia, unspecified; N25.81 Secondary hyperparathyroidism of renal origin; R80.9 Proteinuria, unspecified
CPT/HCPCS: 36415; 80048; 82570; 83970; 84156; 85014; 85018

== ENCOUNTER → 2020-01-20 10:50 | Outpatient (CLI) | payer MEDICARE, SELFPAY ==
--- NOTE | 2020-01-20 10:52 | DI.MG.S_ITS ---
BILATERAL DIGITAL SCREENING MAMMOGRAM 3D/2D WITH CAD POST LUMPECTOMY: 01/20/2020 CLINICAL: Routine screening. Personal history of right breast cancer. Family history of breast cancer. Comparison is made to exams dated: 01/01/2018 mammogram, 12/16/2016 mammogram, and 01/16/2019 mammogram - [facility]. There are scattered fibroglandular elements in both breasts. Current study was also evaluated with a Computer Aided Detection (CAD) system. There are benign post operative findings in the right breast. There also are benign post operative findings and biopsy clip in the left breast. No significant masses, calcifications, or other findings are seen in either breast. There has been no significant interval change. IMPRESSION: There is no mammographic evidence of malignancy. A 1 year screening mammogram is recommended. This exam was interpreted at Station ID: [id number]. NOTE: For mammograms, a report in lay terms will be sent to the patient. Approximately 15% of breast malignancies will not be visualized mammographically. In the management of a palpable breast mass, a negative mammogram must not discourage biopsy of a clinically suspicious lesion. Electronically Signed By: Janna crawford/bassem:01/20/2020 11:36:07 copy to: DOMINGO WOOD letter sent: Normal Exam ACR BI-RADS Category 2: Benign Finding(s) 3342F
== END ==
PROVIDERS: PCP Student in an Organized Health Care Education/Training Program; Referring Provider Student in an Organized Health Care Education/Training Program; Visit Provider Student in an Organized Health Care Education/Training Program
DX: Z12.31 Encounter for screening mammogram for malignant neoplasm of breast (principal); Z85.3 Personal history of malignant neoplasm of breast; Z80.3 Family history of malignant neoplasm of breast
CPT/HCPCS: 77063; 77067

== ENCOUNTER → 2020-04-09 10:53 | Outpatient (CLI) | payer MEDICARE, SELFPAY ==
[2020-04-09 11:46] LABS: Hematocrit 39.3 % (36-46); Hemoglobin 12.8 g/dL (12.0-16.0)
[2020-04-09 12:18] LABS: Creatinine Urine Random 41.8 mg/dL; Protein (Total) Urine Random 40 mg/dL (0-12); Protein Creatinine Ratio Urine 0.95 GRAM/24H
[2020-04-09 12:19] LABS: BUN Creatinine Ratio 12.5 (6-22); Blood Urea Nitrogen 22 mg/dL (7-17); Calcium 9.3 mg/dL (8.4-10.2); Carbon Dioxide 28 mmol/L (22-32); Chloride 104 mmol/L (98-107); Glucose 90 mg/dL (80-110); HEMOLYSIS < 15 (0-50); Potassium 4.9 mmol/L (3.4-5.1); Sodium 139 mmol/L (137-145)
[2020-04-10 07:09] LABS: Parathyroid Hormone Int 34 pg/mL (15-65)
== END ==
PROVIDERS: PCP Student in an Organized Health Care Education/Training Program; Referring Provider Student in an Organized Health Care Education/Training Program; Visit Provider Student in an Organized Health Care Education/Training Program
DX: N05.9 Unspecified nephritic syndrome with unspecified morphologic changes (principal); D64.9 Anemia, unspecified; N25.81 Secondary hyperparathyroidism of renal origin; R80.9 Proteinuria, unspecified
CPT/HCPCS: 36415; 80048; 82570; 83970; 84156; 85014; 85018

== ENCOUNTER 2020-04-20 12:17 | Emergency (ER) | payer MEDICARE, SELFPAY ==
[2020-04-20 12:34] VITALS: BP 125/76; PULSE 80; RESP 14; TEMP 36.9; O2SAT 98
--- NOTE | 2020-04-20 12:40 | DI.RAD.S_ITS ---
PROCEDURE: XR SHOULDER LT MIN 2V INDICATIONS: fall and pain TECHNIQUE: 3 views of the shoulder were acquired. COMPARISON: None. FINDINGS: Bones: There is a mildly displaced fracture of the lateral aspect of the humeral head. No glenohumeral dislocation is seen. Age-appropriate bony degenerative changes are seen. Soft tissues: Atherosclerotic calcification of the aortic arch is noted. Left lower neck clips are seen. The visualized lung demonstrates an unremarkable appearance. IMPRESSION: Mildly displaced fracture of the lateral aspect of the left humeral head. If it would be helpful for clinical management decision making, please consider a dedicated shoulder CT for further evaluation. Dictated by: Tariq Castillo M.D. on 04/20/2020 at 12:12 Approved by: Tariq Castillo M.D. on 04/20/2020 at 12:13
--- NOTE | 2020-04-20 13:35 | ED.FALL ---
HPI - Fall General Chief Complaint: Fall Stated Complaint: Fall, Lt Shoulder Pain Time Seen by Provider: 04/20/20 13:22 Source: patient Mode of arrival: Wheelchair Limitations: no limitations History of Present Illness HPI Narrative: Patient is a 79-year-old female with history of subdural hematoma without symptoms presenting after a ground level fall today. She tripped over her small dog during a walk and landed on her left shoulder. She does not think she hit her head she is not on any anti-platelet or anticoagulation medication infectious avoid all NSAIDs based on her subdural hematoma history. Denies any headache nausea or focal deficits MD complaint: fall Fall from: standing Fall witnessed: no Place fall occurred: street Loss of consciousness: none Related Data Home Medications Medication Instructions Recorded Confirmed allopurinol 300 mg tablet 300 mg PO DAILY 02/28/18 12/25/18 amlodipine 5 mg tablet 5 mg PO DAILY 02/28/18 12/25/18 cholecalciferol (vitamin D3) 50 2,000 unit PO DAILY 02/28/18 12/25/18 mcg (2,000 unit) capsule levetiracetam 500 mg tablet 500 mg PO Q12H 02/28/18 12/25/18 levothyroxine 75 mcg tablet 75 mcg PO DIRECTED 02/28/18 12/25/18 simvastatin 10 mg tablet 10 mg PO QPM 02/28/18 12/25/18 sodium bicarbonate 325 mg tablet 20 g PO DAILY tab 02/28/18 12/25/18 cyclobenzaprine 10 mg PO DAILY PRN 04/04/18 12/25/18 temazepam 30 mg PO BEDTIME PRN 04/04/18 12/25/18 acetaminophen 325 mg capsule 325 mg PO Q6H PRN 12/25/18 12/25/18 anastrozole 1 mg tablet 1 mg PO DAILY 12/25/18 12/25/18 colchicine 0.6 mg capsule 0.6 mg PO DAILY PRN 12/25/18 12/25/18 ferrous sulfate 142 mg (45 mg 142 mg PO DAILY tab 12/25/18 12/25/18 iron) tablet,extended release furosemide 20 mg tablet 10 mg PO DAILY PRN 12/25/18 12/25/18 glimepiride 1 mg tablet 1 mg PO QAM 12/25/18 12/25/18 melatonin 5 mg capsule 5 mg PO PRN cap 12/25/18 12/25/18 Respironics Dreamstation CPAP #1 ea 12/27/18 12/27/18 Previous Rx's Medication Instructions Recorded hydrocodone-acetaminophen 1 tab PO Q6H PRN #10 tab 04/20/20 Allergies Allergy/AdvReac Type Severity Reaction Status Date / Time No Known Drug Allergies Allergy Verified 04/20/20 12:39 Review of Systems Review of Systems Narrative: GENERAL: Denies chills, fatigue, malaise, fever, sweats, travel HEENT: Denies sinus pain, ear pain, sore throat, difficulty swallowing, neck pain RESPIRATORY: Denies dyspnea, cough, wheezing, hemoptysis, sputum. CARDIOVASCULAR: Denies chest pain, palpitations, orthopnea, edema GASTROINTESTINAL: Denies nausea, vomiting, abdominal pain, diarrhea, constipation, melena. : Denies dysuria, frequency, incontinence, hematuria, urinary retention, flank pain. MUSCULOSKELETAL: See HPI SKIN: No rash, no erythema, no pruritus NEUROLOGIC: Denies weakness, dizziness, headache, numbness, change in speech, confusion PSYCHIATRIC: No concerning psychosocial issues. 12 point review of systems is negative except for those stated above and HPI Patient History Medical History Breast cancer, right (Inactive) Collapsed lung (Resolved) Facial bones, closed fracture (Acute) GERD (gastroesophageal reflux disease) (Chronic) History of kidney stones (Resolved) History of seizure disorder (Resolved) History of subdural hematoma (Resolved) Hyperlipidemia (Chronic) Hypertension (Chronic) Hypothyroid (Chronic) Kidney stones (Resolved) Pneumonia (Resolved) Pre-diabetes (Chronic) Primary insomnia (Chronic) Sleep apnea (Chronic) Subdural hematoma (Resolved) Surgical History H/O hysterectomy for benign disease (Resolved) H/O right breast biopsy (Resolved) History of left cataract surgery (Resolved) History of tonsillectomy (Resolved) Status post cataract extraction of both eyes with insertion of intraocular lens (Resolved) Status post right breast biopsy (Resolved) Family History Sister Cancer Stroke Social History household members: none Smoking Status: Former smoker alcohol intake: current Smoking Status: Former smoker alcohol intake frequency: 0-2 drinks per day Substance Use Type: does not use Exam Initial Vital Signs Initial Vital Signs: Vital Signs Temperature 98.4 F 04/20/20 12:34 Pulse Rate 80 04/20/20 12:34 Respiratory Rate 14 04/20/20 12:34 Blood Pressure 125/76 04/20/20 12:34 Pulse Oximetry 98 04/20/20 12:34 GENERAL: Well-appearing, well-nourished and in no acute distress. HEENT: Head atraumatic,EOMI, pupils reactive, face symmetric, neck is supple CARDIOVASCULAR: Regular rate and rhythm without murmurs, rubs or gallops. RESPIRATORY: Breath sounds equal bilaterally, no wheezes rales or rhonchi. EXTREMITIES: Normal range of motion, no clubbing or edema. Neurovascularly intact No clavicle step-offs sensation in the deltoid intact distal radial pulse intact NEUROLOGICAL: Alert and oriented x4.Normal gait and speech. Cranial nerves II through XII grossly intact. SKIN: Warm, dry, no laceration, no petechiae, no rashes or lesions. Procedures Orthopedic Splinting/Casting Injury #1: Side: left Upper Extremity Injury Location: shoulder Upper Extremity Immobilizer: sling/shoulder immobilizer Post splinting neuro exam: intact Post splinting vascular exam: intact Placed by: Nursing Course Orders Ordered: ED Orders 04/20/20 12:40 XR shoulder LT min 2V Stat 04/20/20 13:45 CT head/brain wo con Stat Discontinued Medications Bacitracin (Bacitracin) 1 applic TOP NOW ONE Stop: 04/20/20 14:33 Last Admin: 04/20/20 14:40 Dose: 1 applic Documented by: SALOME Vital Signs Vital signs: Vital Signs - 8 hr 04/20/20 12:34 04/20/20 14:53 Temperature 98.4 F 98.1 F Pulse Rate 80 81 Respiratory Rate 14 18 Blood Pressure 125/76 136/70 Pulse Oximetry 98 99 MDM - Fall Imaging Data Extremity x-ray #1: Radiologist's Impression: PROCEDURE: XR SHOULDER LT MIN 2V INDICATIONS: fall and pain TECHNIQUE: 3 views of the shoulder were acquired. COMPARISON: None. FINDINGS: Bones: There is a mildly displaced fracture of the lateral aspect of the humeral head. No glenohumeral dislocation is seen. Age-appropriate bony degenerative changes are seen. Soft tissues: Atherosclerotic calcification of the aortic arch is noted. Left lower neck clips are seen. The visualized lung demonstrates an unremarkable appearance. IMPRESSION: Mildly displaced fracture of the lateral aspect of the left humeral head. If it would be helpful for clinical management decision making, please consider a dedicated shoulder CT for further evaluation. Dictated by: Tariq Castillo M.D. on 04/20/2020 at 12:12 Approved by: Tariq Castillo M.D. on 04/20/2020 at 12:13 CT scan - head: Radiologist's Impression: PROCEDURE: CT HEAD/BRAIN WO CON INDICATIONS: fall prior sdh TECHNIQUE: Noncontrast 4.5 mm thick angled axial sections acquired from the foramen magnum to the vertex, with coronal and sagittal reformats. For radiation dose reduction, the following was used: automated exposure control, adjustment of mA and/or kV according to patient size. COMPARISON: [facility], CT, HEAD WITHOUT CONTRAST, 02/22/2017, 16:37. [facility], CT, HEAD WITHOUT CONTRAST, 02/09/2017, 16:50. FINDINGS: Image quality: Excellent. CSF spaces: Basal cisterns are patent. No extra-axial fluid collections. The ventricles are symmetric in size and shape. Brain: No intracranial bleeds or masses. There is cerebral volume loss for age, with resultant ventricular and sulcal prominence. There are periventricular and deep white matter chronic small vessel ischemic changes. There is intracranial internal carotid artery atherosclerosis. Skull and face: Calvarium and visualized facial bones appear intact, without suspicious lesions. Sinuses: Visualized sinuses and mastoids are clear. IMPRESSION: No trauma found. Dictated by: Blanco Vasquez M.D. on 04/20/2020 at 14:11 Approved by: Blanco Vasquez M.D. on 04/20/2020 at 14:12 Discharge Plan Departure Patient Disposition: Home Clinical Impression: Closed left humeral fracture Qualifiers: Encounter type: initial encounter Humerus Location: lateral epicondyle Fracture morphology: unspecified fracture morphology Fracture alignment: displaced Qualified Code(s): S42.432A - Displaced fracture (avulsion) of lateral epicondyle of left humerus, initial encounter for closed fracture Discharge Date/Time: 04/20/20 14:54 Instructions: DI for Humeral Fracture Activity Restrictions/Additional Instructions: *You have been diagnosed with left humeral fracture *What to do: Keep arm in sling at all times except to shower. *Continue to take medications as directed Given 1 tablet every 6 hours if needed for severe pain--> sent to [facility] in [place] *Follow up with your primary care provider in 2-3 days *Return to ER if you should have increasing pain weakness numbness or tingling or any new, worsening or concerning symptoms Prescriptions: New hydrocodone-acetaminophen 5-325 mg tablet 1 tab PO Q6H PRN (Reason: pain) Qty: 10 RF: 0 No Action allopurinol 300 mg tablet 300 mg PO DAILY RF: 0 amlodipine 5 mg tablet 5 mg PO DAILY RF: 0 levetiracetam 500 mg tablet 500 mg PO Q12H RF: 0 simvastatin 10 mg tablet 10 mg PO QPM RF: 0 sodium bicarbonate 325 mg tablet 20 g PO DAILY RF: 0 levothyroxine [Synthroid] 75 mcg tablet 75 mcg PO DIRECTED RF: 0 cholecalciferol (vitamin D3) 2,000 unit capsule 2,000 unit PO DAILY RF: 0 cyclobenzaprine 10 mg Tablet 10 mg PO DAILY PRN (Reason: chest spasms) RF: 0 temazepam 30 mg Capsule 30 mg PO BEDTIME PRN (Reason: Sleep) RF: 0 anastrozole 1 mg tablet 1 mg PO DAILY RF: 0 ferrous sulfate 142 mg (45 mg iron) tablet extended release 142 mg PO DAILY RF: 0 glimepiride 1 mg tablet 1 mg PO QAM RF: 0 melatonin 5 mg capsule 5 mg PO PRNRF: 0 furosemide 20 mg tablet 10 mg PO DAILY PRN (Reason: for air travel) RF: 0 acetaminophen 325 mg capsule 325 mg PO Q6H PRNRF: 0 colchicine 0.6 mg capsule 0.6 mg PO DAILY PRNRF: 0 (DME) Respironics Dreamstation CPAP Qty: 1 RF: 0 Referrals: [facility] [Provider Group] Lucy Santamaria PA-C [Primary Care Provider] -
--- NOTE | 2020-04-20 13:45 | DI.CT.S_ITS ---
PROCEDURE: CT HEAD/BRAIN WO CON INDICATIONS: fall prior sdh TECHNIQUE: Noncontrast 4.5 mm thick angled axial sections acquired from the foramen magnum to the vertex, with coronal and sagittal reformats. For radiation dose reduction, the following was used: automated exposure control, adjustment of mA and/or kV according to patient size. COMPARISON: [facility], CT, HEAD WITHOUT CONTRAST, 02/22/2017, 16:37. [facility], CT, HEAD WITHOUT CONTRAST, 02/09/2017, 16:50. FINDINGS: Image quality: Excellent. CSF spaces: Basal cisterns are patent. No extra-axial fluid collections. The ventricles are symmetric in size and shape. Brain: No intracranial bleeds or masses. There is cerebral volume loss for age, with resultant ventricular and sulcal prominence. There are periventricular and deep white matter chronic small vessel ischemic changes. There is intracranial internal carotid artery atherosclerosis. Skull and face: Calvarium and visualized facial bones appear intact, without suspicious lesions. Sinuses: Visualized sinuses and mastoids are clear. IMPRESSION: No trauma found. Dictated by: Blanco Vasquez M.D. on 04/20/2020 at 14:11 Approved by: Blanco Vasquez M.D. on 04/20/2020 at 14:12
[2020-04-20] MEDS: BACITRACIN OINT 0.9 GM PCKT 1 APPLIC TOP (14:40)
[2020-04-20 14:53] VITALS: BP 136/70; PULSE 81; RESP 18; TEMP 36.7; O2SAT 99
== END 2020-04-20 14:54 | disposition home or self-care (01) ==
PROVIDERS: Emergency Provider Emergency Medicine; PCP Student in an Organized Health Care Education/Training Program
DX: S42.432A Displaced fracture (avulsion) of lateral epicondyle of left humerus, initial encounter for closed fracture (principal); W01.0XXA Fall on same level from slipping, tripping and stumbling without subsequent striking against object, initial encounter; Y93.01 Activity, walking, marching and hiking; Z86.79 Personal history of other diseases of the circulatory system
CPT/HCPCS: 70450; 73030; 99283; 99284

== ENCOUNTER → 2020-08-17 14:12 | Outpatient (CLI) | payer MEDICARE, SELFPAY ==
[2020-08-20 00:10] LABS: Levetiracetam Keppra 19.4 ug/mL (10.0-40.0)
== END ==
PROVIDERS: PCP Student in an Organized Health Care Education/Training Program; Referring Provider Psychiatry & Neurology Neurology; Visit Provider Psychiatry & Neurology Neurology
DX: G40.109 Localization-related (focal) (partial) symptomatic epilepsy and epileptic syndromes with simple partial seizures, not intractable, without status epilepticus (principal); E55.9 Vitamin D deficiency, unspecified
CPT/HCPCS: 36415; 80177; 82652

== ENCOUNTER → 2020-09-04 08:45 | Outpatient (CLI) | payer MEDICARE, SELFPAY ==
[2020-09-04 09:46] LABS: Hematocrit 35.4 % (36-46); Hemoglobin 11.7 g/dL (12.0-16.0)
[2020-09-04 10:02] LABS: BUN Creatinine Ratio 12.3 (6-22); Blood Urea Nitrogen 20 mg/dL (7-17); Calcium 9.2 mg/dL (8.4-10.2); Carbon Dioxide 27 mmol/L (22-32); Chloride 107 mmol/L (98-107); Estimated Glomerular Filt Rate 30.8 mL/min (>60); Glucose 135 mg/dL (80-110); HEMOLYSIS < 15 (0-50); Potassium 4.2 mmol/L (3.4-5.1); Sodium 140 mmol/L (137-145)
[2020-09-04 10:39] LABS: Protein (Total) Urine Random 84 mg/dL (0-12); Protein Creatinine Ratio Urine 0.78 GRAM/24H
[2020-09-05 05:32] LABS: Parathyroid Hormone Int 124 pg/mL (15-65)
== END ==
PROVIDERS: PCP Student in an Organized Health Care Education/Training Program; Referring Provider Student in an Organized Health Care Education/Training Program; Visit Provider Student in an Organized Health Care Education/Training Program
DX: N05.9 Unspecified nephritic syndrome with unspecified morphologic changes (principal); D64.9 Anemia, unspecified; N25.81 Secondary hyperparathyroidism of renal origin; R80.9 Proteinuria, unspecified
CPT/HCPCS: 36415; 80048; 82570; 83970; 84156; 85014; 85018

== ENCOUNTER → 2020-10-20 13:52 | Outpatient (CLI) | payer MEDICARE, SELFPAY ==
[2020-10-20 15:48] LABS: BUN Creatinine Ratio 13.1 (6-22); Blood Urea Nitrogen 23 mg/dL (7-17); Calcium 7.5 mg/dL (8.4-10.2); Carbon Dioxide 27 mmol/L (22-32); Chloride 106 mmol/L (98-107); Estimated Glomerular Filt Rate 28.2 mL/min (>60); Glucose 115 mg/dL (80-110); HEMOLYSIS < 15 (0-50); Potassium 4.1 mmol/L (3.4-5.1); Sodium 139 mmol/L (137-145)
[2020-10-20 15:51] LABS: Creatinine Urine Random 137.7 mg/dL; Protein (Total) Urine Random 46 mg/dL (0-12); Protein Creatinine Ratio Urine 0.33 GRAM/24H
== END ==
PROVIDERS: PCP Student in an Organized Health Care Education/Training Program; Referring Provider Student in an Organized Health Care Education/Training Program; Visit Provider Student in an Organized Health Care Education/Training Program
DX: N05.9 Unspecified nephritic syndrome with unspecified morphologic changes (principal); R80.9 Proteinuria, unspecified
CPT/HCPCS: 36415; 80048; 82570; 84156

== ENCOUNTER → 2020-11-09 12:28 | Outpatient (CLI) | payer MEDICARE, SELFPAY ==
[2020-11-09 13:07] LABS: BUN Creatinine Ratio 12.8 (6-22); Blood Urea Nitrogen 22 mg/dL (7-17); Calcium 8.8 mg/dL (8.4-10.2); Carbon Dioxide 26 mmol/L (22-32); Chloride 104 mmol/L (98-107); Estimated Glomerular Filt Rate 28.8 mL/min (>60); Glucose 117 mg/dL (80-110); HEMOLYSIS < 15 (0-50); Potassium 3.9 mmol/L (3.4-5.1); Sodium 139 mmol/L (137-145)
== END ==
PROVIDERS: PCP Student in an Organized Health Care Education/Training Program; Referring Provider Student in an Organized Health Care Education/Training Program; Visit Provider Student in an Organized Health Care Education/Training Program
DX: N05.9 Unspecified nephritic syndrome with unspecified morphologic changes (principal)
CPT/HCPCS: 36415; 80048

== ENCOUNTER 2020-12-04 21:01 | Emergency (ER) | payer MEDICARE, SELFPAY ==
[2020-12-04] VITALS (7 sets, daily range): BP systolic 148–187; BP diastolic 73–83; PULSE 69–80; RESP 18; O2SAT 92–98; BMI 30.7
--- NOTE | 2020-12-04 21:06 | ED_ITS ---
HPI - Abdominal Pain General Chief Complaint: Abdominal Pain Stated Complaint: Appendicitis Time Seen by Provider: 12/04/20 21:03 Source: patient and family Mode of arrival: Ambulatory Limitations: no limitations History of Present Illness HPI narrative: 79F former smoker with history of CKD, osteopenia, insomnia, l ipoma, prior subdural hematoma presents with family in the chief complaint of gradually worsening abdominal pain over the course of the day. She states it started as a generalized periumbilical discomfort that has since radiated into her right lower quadrant. Her pain is worse with motion or move standing up. And improves with rest. She has nausea but denies any vomiting. She has had no fever or chills but does state that she has not eaten since 2:00 p.m. because she has no appetite whatsoever. She denies urinary complaints such as dysuria, frequency or urgency. She denies any constipation or diarrhea. MD complaint: abdominal pain Onset (ago): hour(s) Pain Consistency: constant Location: RLQ Severity: moderate Quality: cramping and aching Radiation: none Migration to: RLQ Relieving factors: rest Exacerbating factors: movement Associated symptoms: nausea and anorexia Related Data Home Medications Medication Instructions Recorded Confirmed allopurinol 300 mg tablet 300 mg PO DAILY 02/28/18 12/25/18 amlodipine 5 mg tablet 5 mg PO DAILY 02/28/18 12/25/18 cholecalciferol (vitamin D3) 50 2,000 unit PO DAILY 02/28/18 12/25/18 mcg (2,000 unit) capsule levetiracetam 500 mg tablet 500 mg PO Q12H 02/28/18 12/25/18 levothyroxine 75 mcg tablet 75 mcg PO DIRECTED 02/28/18 12/25/18 simvastatin 10 mg tablet 10 mg PO QPM 02/28/18 12/25/18 sodium bicarbonate 325 mg tablet 20 g PO DAILY tab 02/28/18 12/25/18 cyclobenzaprine 10 mg PO DAILY PRN 04/04/18 12/25/18 temazepam 30 mg PO BEDTIME PRN 04/04/18 12/25/18 acetaminophen 325 mg capsule 325 mg PO Q6H PRN 12/25/18 12/25/18 anastrozole 1 mg tablet 1 mg PO DAILY 12/25/18 12/25/18 colchicine 0.6 mg capsule 0.6 mg PO DAILY PRN 12/25/18 12/25/18 ferrous sulfate 142 mg (45 mg 142 mg PO DAILY tab 12/25/18 12/25/18 iron) tablet,extended release furosemide 20 mg tablet 10 mg PO DAILY PRN 12/25/18 12/25/18 glimepiride 1 mg tablet 1 mg PO QAM 12/25/18 12/25/18 melatonin 5 mg capsule 5 mg PO PRN cap 12/25/18 12/25/18 Respironics Dreamstation CPAP #1 ea 12/27/18 12/27/18 Previous Rx's Medication Instructions Recorded hydrocodone-acetaminophen 1 tab PO Q6H PRN #10 tab 04/20/20 amoxicillin-pot clavulanate 1 tab PO BID #20 tab 12/05/20 [Augmentin] hydrocodone-acetaminophen 1 tab PO Q4-6H PRN #10 tab 12/05/20 ondansetron 4 mg PO TID-QID PRN #10 tab 12/05/20 Allergies Allergy/AdvReac Type Severity Reaction Status Date / Time No Known Drug Allergies Allergy Verified 04/20/20 12:39 Review of Systems Constitutional Constitutional: Denies chills, Denies fatigue, Denies fever(s), Denies frequent falls, Denies lethargy and Denies weakness Eyes Eyes: Denies change in vision, Denies eye discharge, Denies irritation and Den ies loss of vision ENT Ears, Nose, Mouth, and Throat: Denies change in voice, Denies dizziness, Denies neck pain, Denies sore throat and Denies throat swelling Cardiovascular Cardiovascular: Denies chest pain, Denies irregular heart rhythm, Denies lightheadedness, Denies palpitations, Denies dyspnea, Denies dyspnea on exertion and Denies orthopnea Respiratory Respiratory: Denies cough, Denies dyspnea, Denies dyspnea on exertion and Denies wheezing Gastrointestinal Gastrointestinal: Reports abdominal pain, Denies change in bowel habits, Denies diarrhea, Reports nausea and Denies vomiting Musculoskeletal Musculoskeletal: Denies neck pain and Denies numbness Integumentary/Breasts Skin/Breast: Denies pruritus, Denies erythema, Denies rash and Denies wounds Neurologic Neurologic: Denies behavioral changes, Denies confusion, Denies dizziness, Denies frequent falls, Denies loss of vision, Denies numbness and Denies weaknes s Psychiatric Psychiatric: Denies anxiety, Denies behavioral changes, Denies confusion, Denies depression, Denies homicidal ideation and Denies suicidal ideation Endocrine Endocrine: Denies fatigue, Denies flushing and Denies palpitations Hematologic/Lymphatic Hematologic/Lymphatic: Denies easy bruising Allergic/Immunologic Allergic/Immunologic: Denies urticaria, Denies throat swelling and Denies wheezing Patient History Medical History (Updated 12/05/20 @ 00:33 by Timothy Clarke DO) Breast cancer, right Collapsed lung Facial bones, closed fracture GERD (gastroesophageal reflux disease) History of kidney stones History of seizure disorder History of subdural hematoma Hyperlipidemia Hypertension Hypothyroid Kidney stones Pneumonia Pre-diabetes Primary insomnia Sleep apnea Subdural hematoma Surgical History H/O hysterectomy for benign disease H/O right breast biopsy History of left cataract surgery History of tonsillectomy Status post cataract extraction of both eyes with insertion of intraocular lens Status post right breast biopsy Family History Sister Cancer Stroke Social History household members: none Smoking Status: Former smoker alcohol intake: current Smoking Status: Former smoker alcohol intake frequency: 0-2 drinks per day Substance Use Type: does not use Exam Narrative Exam Narrative: GENERAL: [79] year old patient appears stated age. Well- nourished, well-developed patient, in mild distress. HEAD: Atraumatic. Normocephalic. EYES: Pupils equal round and reactive. Extraocular motions intact. No scleral icterus. No injection or drainage. ENT: Nose without bleeding, purulent drainage. Throat without erythema, tonsillar hypertrophy or exudate. Airway patent. NECK: Trachea midline. Non tender CARDIOVASCULAR: Regular rate and rhythm without murmurs, gallops, or rubs. RESPIRATORY: Clear to auscultation. Breath sounds equal bilaterally. No wheezes, rales, or rhonchi. GASTROINTESTINAL: Abdomen soft, tender in the right lower quadrant, no peritoneal findings nondistended. Bowel sounds present in all 4 quadrants EXTREMITIES: No edema or joint tenderness. BACK: Nontender without deformity or crepitance. No flank tenderness. NEURO: AOx3. SKIN: No rash or erythema of visible areas Initial Vital Signs Initial Vital Signs: Vital Signs Pulse Rate 80 12/04/20 21:08 Respiratory Rate 18 12/04/20 21:08 Blood Pressure 148/73 H 12/04/20 21:08 Pulse Oximetry 98 12/04/20 21:08 Course Course Course Narrative: 0011 - there has been a signficant delay in obtaining CT results, apparently the receiving system had gone down briefly. Still waiting on results. Patient and surgery aware of delay. Orders Ordered: ED Orders 12/04/20 21:10 Complete Blood Count AUTO DIFF Stat Comprehensive Metabolic Panel Stat Lipase Stat 12/04/20 22:06 CT abdomen pelvis wo con Stat Discontinued Medications Hydrocodone Bitart/Acetaminophen (Hydrocodone/Acet 5/325 Prepack) 1 bottle MISC SEEINSTR ONE Stop: 12/05/20 00:29 Amoxicillin/Clavulanate Potassium (Amoxicillin/Clav 875/125 Mg) 1 tab PO NOW O NE Stop: 12/05/20 00:29 Lactated Ringer's (Lactated Ringers) 1,000 mls @ 1,000 mls/hr IV BOLUS ONE Stop: 12/04/20 22:02 Last Admin: 12/04/20 21:22 Dose: 1,000 mls/hr Documented by: RUTHIE Ondansetron HCl (Ondansetron 4 Mg Odt Prepack) 1 bottle MISC SEEINSTR ONE Stop: 12/05/20 00:29 Vital Signs Vital signs: Vital Signs - 8 hr 12/04/20 21:08 12/04/20 21:42 12/04/20 22:00 Pulse Rate 80 71 70 Respiratory Rate 18 Blood Pressure 148/73 H 175/81 H Pulse Oximetry 98 96 97 12/04/20 22:30 12/04/20 23:00 12/04/20 23:30 Pulse Rate 69 71 77 Respiratory Rate Blood Pressure Pulse Oximetry 92 97 98 MDM - Abdominal Pain Lab Data Result diagrams: 12/04/20 21:10 12/04/20 21:10 Labs: Lab Results 12/04/20 12/04/20 12/04/20 Range/Units 21:10 21:10 21:10 WBC 12.1 H (4.5-11.0) X10^3/uL RBC 4.13 (4.0-5.2) X10^6/uL Hgb 12.1 (12.0-16.0) g/dL Hct 37.4 (36-46) % MCV 90.5 (80-100) fL MCH 29.3 (26-34) PG MCHC 32.4 (30-36) % RDW 14.7 (11.6-14.8) % Plt Count 312 (150-400) X10^3/uL Neut % (Auto) 80.3 H (50-75) % Lymph % (Auto) 13.4 L (25-40) % [place] % (Auto) 4.4 (3-14) % Eos % (Auto) 1.0 L (2-4) % Baso % (Auto) 0.9 (0-2) % Neut # (Auto) 9700 H (7336-1918) /uL Lymph # (Auto) 1600 (2376-8029) /uL [place] # (Auto) 500 (0-900) /uL Eos # (Auto) 100 (0-450) /uL Baso # (Auto) 100 (0-100) /uL Sodium 139 (137-145) mmol/L Potassium 4.6 (3.4-5.1) mmol/L Chloride 105 (98-107) mmol/L Carbon Dioxide 26 (22-32) mmol/L BUN 19 H (7-17) mg/dL Creatinine 1.54 H (0.52-1.04) mg/dL Estimated GFR 32.7 L (>60) mL/min BUN/Creatinine Ratio 12.3 (6-22) Glucose 160 H (80-110) mg/dL Calcium 10.0 (8.4-10.2) mg/dL Total Bilirubin 0.3 (0.2-1.3) mg/dL AST 23 (14-36) IU/L ALT 19 (<35) IU/L Alkaline Phosphatase 97 (38-126) U/L Total Protein 7.0 (6.3-8.2) g/dL Albumin 4.2 (3.5-5.0) g/dL Globulin 2.8 (1.7-4.1) g/dL Albumin/Globulin Ratio 1.5 (1.0-2.8) Lipase 243 (23-300) U/L Point of care testing: Urine Dip Bedside Urine Glucose Negative Bedside Urine Bilirubin - Negative Bedside Urine Ketone - Negative Urine Specific [place] 1.020 Bedside Urine Occult Blood - Negative Bedside Urine pH 6.0 Bedside Urine Protein - Negative Bedside Urine Urobilinogen +/- 1mg Bedside Urine Nitrite - Negative Bedside Urine Leukocytes - Negative Esterase Imaging Data CT scan - abdomen/pelvis: Radiologist's Impression: Air-fluid levels in nondistended small bowel which could be due to enteritis versus dysmotility MDM Narrative Medical decision making narrative: Multiple etiologies for patient's symptoms considered including: [appendicitis vs. bowel obstruction vs. obstructive uropathy vs. colitis/enteritis vs. other] Patient's symptoms improved over duration of stay with above-stated therapies. In fact, she is in no pain whatsoever at time of discharge with soft belly Findings and discharge diagnosis discussed with patient/family followed by verbalization of understanding Return precautions discussed with patient/family whom verbalize understanding. Discharge Plan Departure Patient Disposition: Home Clinical Impression: Enteritis Abdominal pain Qualifiers: Abdominal location: right lower quadrant Qualified Code(s): R10.31 - Right lower quadrant pain Instructions: DI for Enteritis Activity Restrictions/Additional Instructions: *You have been diagnosed with [right lower quadrant pain and CT scan demonstrates likely enteritis. Your appendix looks okay and there is no evidence of bowel obstruction] *What to do: *Take medications as directed *Follow up with your primary care provider in 2-3 days, call for an appointment. Let them know you were seen in the Emergency Department and that we ask that you be seen in follow up *Return to ER if you should have any new, worsening or concerning symptoms, such as [increasing pain, fever over 101 F, persistent vomiting or other bothersome symptoms] You have been prescribed narcotic medications. While on these medications you cannot drive or operate heavy machinery. Additionally you cannot sign legal documents or perform any duties such as this. 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 Please understand that we cannot provide further refills of narcotics or controlled substances through the ED and your pain management will need to be through your Primary Care Provider Prescriptions: New hydrocodone-acetaminophen 5-325 mg tablet 1 tab PO Q4-6H PRN (Reason: pain) Qty: 10 RF: 0 ondansetron 4 mg tablet,disintegrating 4 mg PO TID-QID PRN (Reason: nausea and vomiting) Qty: 10 RF: 0 amoxicillin-pot clavulanate [Augmentin] 875-125 mg tablet 1 tab PO BID Qty: 20 RF: 0 No Action allopurinol 300 mg tablet 300 mg PO DAILY RF: 0 amlodipine 5 mg tablet 5 mg PO DAILY RF: 0 levetiracetam 500 mg tablet 500 mg PO Q12H RF: 0 simvastatin 10 mg tablet 10 mg PO QPM RF: 0 sodium bicarbonate 325 mg tablet 20 g PO DAILY RF: 0 levothyroxine [Synthroid] 75 mcg tablet 75 mcg PO DIRECTED RF: 0 cholecalciferol (vitamin D3) 2,000 unit capsule 2,000 unit PO DAILY RF: 0 cyclobenzaprine 10 mg Tablet 10 mg PO DAILY PRN (Reason: chest spasms) RF: 0 temazepam 30 mg Capsule 30 mg PO BEDTIME PRN (Reason: Sleep) RF: 0 hydrocodone-acetaminophen 5-325 mg tablet 1 tab PO Q6H PRN (Reason: pain) Qty: 10 RF: 0 anastrozole 1 mg tablet 1 mg PO DAILY RF: 0 ferrous sulfate 142 mg (45 mg iron) tablet extended release 142 mg PO DAILY RF: 0 glimepiride 1 mg tablet 1 mg PO QAM RF: 0 melatonin 5 mg capsule 5 mg PO PRNRF: 0 furosemide 20 mg tablet 10 mg PO DAILY PRN (Reason: for air travel) RF: 0 acetaminophen 325 mg capsule 325 mg PO Q6H PRNRF: 0 colchicine 0.6 mg capsule 0.6 mg PO DAILY PRNRF: 0 (DME) Respironics Dreamstation CPAP Qty: 1 RF: 0 Referrals: Lucy Santamaria PA-C [Primary Care Provider] -
[2020-12-04] MEDS: LACTATED RINGERS 1,000 ML 1000 ML IV (21:22)
[2020-12-04 21:24] LABS: Add Manual Diff / Slide Review NO; Basophils Absolute Auto 100 /uL (0-100); Basophils Percent Auto 0.9 % (0-2); Eosinophils Absolute Auto 100 /uL (0-450); Hematocrit 37.4 % (36-46); Hemoglobin 12.1 g/dL (12.0-16.0); Lymphocytes Absolute Auto 1600 /uL (1100-4500); Lymphocytes Percent Auto 13.4 % (25-40); Mean Corpuscular HGB Conc 32.4 % (30-36); Mean Corpuscular Hemoglobin 29.3 PG (26-34); Mean Corpuscular Volume 90.5 fL (80-100); Monocytes Absolute Auto 500 /uL (0-900); Monocytes Percent Auto 4.4 % (3-14); Neutrophils Absolute Auto 9700 /uL (1500-7000); Neutrophils Percent Auto 80.3 % (50-75); Platelet Count 312 X10^3/uL (150-400); Red Blood Cell Count 4.13 X10^6/uL (4.0-5.2); Red Cell Distribution Width 14.7 % (11.6-14.8); White Blood Cell Count 12.1 X10^3/uL (4.5-11.0)
[2020-12-04 21:36] LABS: Lipase 243 U/L (23-300)
[2020-12-04 21:38] LABS: Alanine Aminotransferase 19 IU/L (<35); Albumin 4.2 g/dL (3.5-5.0); Albumin Globulin Ratio 1.5 (1.0-2.8); Alkaline Phosphatase 97 U/L (38-126); Aspartate Aminotransferase 23 IU/L (14-36); BUN Creatinine Ratio 12.3 (6-22); Bilirubin Total 0.3 mg/dL (0.2-1.3); Blood Urea Nitrogen 19 mg/dL (7-17); Carbon Dioxide 26 mmol/L (22-32); Chloride 105 mmol/L (98-107); Estimated Glomerular Filt Rate 32.7 mL/min (>60); Globulin 2.8 g/dL (1.7-4.1); Glucose 160 mg/dL (80-110); HEMOLYSIS 22 (0-50); Potassium 4.6 mmol/L (3.4-5.1); Sodium 139 mmol/L (137-145)
--- NOTE | 2020-12-04 22:06 | DI.CT.S_ITS ---
PROCEDURE: CT ABDOMEN PELVIS WO CON INDICATIONS: severe RLQ pain TECHNIQUE: Noncontrast 5 mm thick sections acquired from the diaphragms to the symphysis. 5 mm coronal and sagittal reformats were then performed. For radiation dose reduction, the following was used: automated exposure control, adjustment of mA and/or kV according to patient size. COMPARISON: None. FINDINGS: Image quality: Excellent. ABDOMEN: Lung bases: Lung bases are clear. Heart size is normal. Solid organs: Liver is normal in size. Diffuse fatty liver infiltration is noted. Gallbladder wall is not thickened. Pancreas is normal in contours. Spleen is normal in size. No adrenal nodules. The kidneys demonstrate normal size. Numerous simple appearing bilateral renal cysts are seen. On the left posteriorly, there is a complex cyst with layering debris that measures 3 cm, as on series 2, image 24. On the left, there is a nonobstructing kidney stone measuring 3 mm. Minimal to mild left-sided hydronephrosis is seen. No stones are seen along the courses of either ureters. Several pelvic phleboliths can be seen. Peritoneum and bowel: In this patient with this given history, scrutiny is given to the appendix. The appendix is normal. There is wall thickening and fatty stranding seen involving the proximal colon, including the ascending colon and the transverse colon, with surrounding inflammatory change. The more distal colon demonstrates no significant abnormality. No dilated loops of small bowel are seen. No free air or significant free fluid can be seen. Unenhanced bowel loops demonstrate normal wall thickness and caliber. No free fluid or air. Nodes and vessels: No retroperitoneal or mesenteric adenopathy by size criteria. Aorta and inferior vena cava are normal in caliber. Atherosclerotic calcification is noted. Miscellaneous: No ventral hernias. PELVIS: Genitourinary: Bladder wall thickness is normal. This patient is status post hysterectomy. No adnexal masses are seen. Miscellaneous: No inguinal hernias or adenopathy. Bones: No suspicious bony lesions. No vertebral body compression fractures. Mild dextroconvex scoliotic curvature is seen. Age-appropriate bony degenerative changes are seen. IMPRESSION: Normal appendix. Proximal colitis. Please correlate with potential inflection and inflammatory causes. No findings of perforation or abscess can be seen. Simple appearing bilateral renal cysts are seen. There is also a mildly complex cyst seen on the left posteriorly, with layering debris. Mild left-sided hydronephrosis and hydroureter, without a cause of obstruction seen. Incidental note is made of: Fatty liver infiltration 3 mm nonobstructing left-sided kidney stone. Dextroconvex scoliotic curvature Hysterectomy Note: This case (including differences between this final report and the preliminary report) discussed by telephone with Dr. Spring at 7:52 a.m. [place] time on December 05, 2020. Dictated by: Tariq Castillo M.D. on 12/05/2020 at 7:46 Approved by: Tariq Castillo M.D. on 12/05/2020 at 7:54
[2020-12-05] VITALS: BP 161/75; PULSE 71; O2SAT 97
[2020-12-05 00:30] VITALS: BP 165/80; PULSE 70; O2SAT 96
[2020-12-05] MEDS: HYDROCODONE/ACET 5/325 PREPACK 1 BOTTLE MISC (00:43)
[2020-12-05] MEDS: ONDANSETRON 4 MG ODT PREPACK 1 BOTTLE MISC (00:43)
[2020-12-05] MEDS: AMOXICILLIN/CLAV 875/125 MG 1 TAB PO (00:43)
== END 2020-12-05 00:54 | disposition home or self-care (01) ==
PROVIDERS: Emergency Provider Emergency Medicine; PCP Student in an Organized Health Care Education/Training Program
DX: K52.9 Noninfective gastroenteritis and colitis, unspecified (principal); R10.31 Right lower quadrant pain; R11.0 Nausea
CPT/HCPCS: 36415; 74176; 80053; 81003; 83690; 85025; 96360; 96361; 99284

== ENCOUNTER → 2021-01-20 10:25 | Outpatient (CLI) | payer MEDICARE, SELFPAY ==
--- NOTE | 2021-01-20 | DI.MG.S_ITS ---
BILATERAL DIGITAL SCREENING MAMMOGRAM 3D/2D WITH CAD: 01/20/2021 CLINICAL: Routine screening. Family history of breast cancer. Breast cancer. Comparison is made to exams dated: 01/20/2020 mammogram, 01/16/2019 mammogram, 03/15/2018 mammogram, 03/15/2018 localization, and 01/01/2018 mammogram - [facility]. The tissue of both breasts is heterogeneously dense. This may lower the sensitivity of mammography. Current study was also evaluated with a Computer Aided Detection (CAD) system. There are benign calcifications in both breasts. There also are benign post operative findings in the right breast. No significant masses, calcifications, or other findings are seen in either breast. There has been no significant interval change. IMPRESSION: BENIGN There is no mammographic evidence of malignancy. A 1 year screening mammogram is recommended. This exam was interpreted at Station ID: [id number]. NOTE: For mammograms, a report in lay terms will be sent to the patient. Approximately 15% of breast malignancies will not be visualized mammographically. In the management of a palpable breast mass, a negative mammogram must not discourage biopsy of a clinically suspicious lesion. Electronically Signed By: Sterling prieto/bassem:01/20/2021 11:07:02 copy to: DOMINGO WOOD letter sent: Normal Exam ACR BI-RADS Category 2: Benign Finding(s) 3342F
== END ==
PROVIDERS: PCP Student in an Organized Health Care Education/Training Program; Referring Provider Student in an Organized Health Care Education/Training Program; Visit Provider Student in an Organized Health Care Education/Training Program
DX: Z12.31 Encounter for screening mammogram for malignant neoplasm of breast (principal); Z85.3 Personal history of malignant neoplasm of breast; Z80.3 Family history of malignant neoplasm of breast
CPT/HCPCS: 77063; 77067

== ENCOUNTER → 2021-03-05 08:39 | Outpatient (CLI) | payer MEDICARE, SELFPAY ==
[2021-03-05 09:20] LABS: Add Manual Diff / Slide Review NO; Basophils Absolute Auto 100 /uL (0-100); Basophils Percent Auto 0.9 % (0-2); Eosinophils Absolute Auto 200 /uL (0-450); Eosinophils Percent Auto 2.7 % (2-4); Hematocrit 36.2 % (36-46); Lymphocytes Absolute Auto 1500 /uL (1100-4500); Lymphocytes Percent Auto 18.4 % (25-40); Mean Corpuscular Hemoglobin 29.9 PG (26-34); Mean Corpuscular Volume 90.7 fL (80-100); Monocytes Absolute Auto 500 /uL (0-900); Monocytes Percent Auto 6.2 % (3-14); Neutrophils Absolute Auto 5800 /uL (1500-7000); Neutrophils Percent Auto 71.8 % (50-75); Platelet Count 311 X10^3/uL (150-400); Red Blood Cell Count 3.99 X10^6/uL (4.0-5.2); Red Cell Distribution Width 14.2 % (11.6-14.8)
[2021-03-05 09:28] LABS: Hemoglobin A1C% w Est Avg Glu 6.3 % (4.0-6.0)
[2021-03-05 09:42] LABS: BUN Creatinine Ratio 10.9 (6-22); Blood Urea Nitrogen 18 mg/dL (7-17); Calcium 8.3 mg/dL (8.4-10.2); Carbon Dioxide 28 mmol/L (22-32); Chloride 107 mmol/L (98-107); Estimated Glomerular Filt Rate 30.1 mL/min (>60); Glucose 143 mg/dL (80-110); HEMOLYSIS < 15 (0-50); Potassium 4.7 mmol/L (3.4-5.1); Sodium 141 mmol/L (137-145)
== END ==
PROVIDERS: PCP Student in an Organized Health Care Education/Training Program; Referring Provider Orthopaedic Surgery; Visit Provider Orthopaedic Surgery
DX: Z01.818 Encounter for other preprocedural examination (principal); R73.9 Hyperglycemia, unspecified; M25.562 Pain in left knee; Z01.812 Encounter for preprocedural laboratory examination
CPT/HCPCS: 36415; 80048; 83036; 85025; 93005; 93010

== ENCOUNTER → 2021-03-20 09:54 | Outpatient (CLI) | payer MEDICARE, SELFPAY ==
[2021-03-20 10:33] LABS: COVID19 -Nasal RAPID Negative (Negative)
== END ==
PROVIDERS: PCP Student in an Organized Health Care Education/Training Program; Referring Provider Physician Assistant; Visit Provider Physician Assistant
DX: Z20.822 Contact with and (suspected) exposure to COVID-19 (principal)
CPT/HCPCS: 87635; C9803

== ENCOUNTER 2021-03-23 12:02 | Observation (INO) | payer MEDICARE, SELFPAY ==
[2021-03-17 08:45] VITALS: BMI 29.5
[2021-03-22] VITALS (14 sets, daily range): BP systolic 105–127; BP diastolic 45–82; PULSE 66–96; RESP 9–20; TEMP 35.7–36.9; O2SAT 92–99; BMI 29.5
--- NOTE | 2021-03-22 06:30 | DI.RAD.S_ITS ---
PROCEDURE: XR KNEE LT 1TO2V INDICATIONS: Postop films TECHNIQUE: 2 view(s) of the knee acquired. COMPARISON: [facility], CR, XR KNEE RT 1TO2V, 04/29/2019, 11:18. FINDINGS: Bones: Patient is status post knee joint arthroplasty. Hardware components are in expected positions. Visualized bony structures are intact. Soft tissues: Overlying postoperative changes are noted. Prepatellar soft tissue swelling present. IMPRESSION: Left total knee prosthesis in place Approved by: Micah Craig M.D. on 03/22/2021 at 13:52
[2021-03-22] MEDS: ACETAMINOPHEN 325 MG TABLET 975 MG PO (08:26)
[2021-03-22] MEDS: PREGABALIN 75 MG CAPSULE PO (08:26)
[2021-03-22] MEDS: LACTATED RINGERS 1,000 ML 42 ML IV (08:37)
--- NOTE | 2021-03-22 10:11 | PM.PREOP ---
Pre-operative Note COVID-19 COVID-19 status: Negative Result date/Date tested (Pos, Neg/Pending): 03/20/21 Interval Note History & Physical reviewed/Exam performed by Physician: Yes Changes to H&P: No
--- NOTE | 2021-03-22 10:26 | P.OP_ITS ---
Operative Date/Time/Diagnoses Date of procedure: 03/22/21 Time of procedure: 12:30 Pre-op diagnosis: Left knee osteoarthritis Post-op diagnosis: same Procedure & Clinicians Procedure: Left total knee replacement Same procedure as scheduled: Yes Indications: The patient has had progressively worsening left knee pain with radiographic changes consistent with arthritis. Non-operative management has failed and the patient has requested total knee replacement. The risks, benefits and alternatives to surgery were discussed with the patient prior to proceeding. Risks discussed included, but were not limited to, failure to relieve pain, stiffness, infection, nerve damage, deep venous thrombosis, pulmonary embolism, stroke, coma, heart attack, permanent paralysis and , as well as the potential need for eventual revision of the prosthetic. Surgeon: Isaiah Yang Medical Billing Representative: Theo Briseno Click Yes if Unassisted: No Anesthesia Type: Local Operative Notes Findings: Moderately severe medial compartment osteoarthritis with relative preservation of the other 2 compartments. Closure Type: primary Specimen(s): none sent Prosthetic devices, grafts, tissues, transplants, or devices: Implants used in this procedure were manufactured by the [employer] and in cluded the BCS II Journey total knee replacement with a size 4 left cobalt chromium femur, size 4 left non porous tibial base plate, a 10 mm cross-linked polyethylene tibial insert and a 32 mm oval Kaylie II patella. Applied: implant(s) Estimated Blood Loss (mL): 25 Tourniquet time (min): 47 Procedure in detail: The patient was seen in the pre-operative area, where the left knee was identified as the operative site and this was marked with my initials. The patient received pre-operative antibiotics, and was taken to the operating room and placed on the operative table in the supine position. After satisfactory anesthesia, a timekeeper supervisor out was performed. The left leg was e ncircled with a tourniquet about the proximal thigh, and the leg was prepared from the toes to the tourniquet with ChloroPrep in the usual fashion and draped through sterile drapes. The leg was elevated and exsanguinated with Eschmark bandage and the tourniquet inflated to 250 mmHg pressure. The knee was approached through an approximately 18 cm incision centered over the patella and carried into the knee through a medial parapatellar arthrotomy. The anterior osteophytes and soft tissues were removed. The rotational landmarks of Filippo's line and the transepicondylar axis were marked on the femur with electrocautery, and intramedullary guide holes for the femur and tibia were created. The distal femoral cut was made in 6 degrees of valgus using the intramedullary guide at the primary cut setting. The proximal tibial cut was then made using the intramedullary guide, taking 9 mm of bone off the less involved side. The extension gap was checked and the rotation of the femoral component confirmed with the gap balancing blocks. The anterior, posterior and chamfer cuts were then made. The posterior osteophytes and soft tissues were then removed. The posterior capsule was injected with part of a mixture of 40 ml 0.25% Marcaine mixed with 20 ml Exparel and 4 mg of morphine for post-operative pain control. The remainder of this mixture was injected into the capsule and subcutaneous tissues during cement curing. The tibia was prepared with the rotation set by an extra medullary guide. Trial tibial and femoral components were then placed and the intercondylar notch cut through the femoral trial. Range of motion was 0-135 degrees, with good stability throughout the range. The patella was then cut to accommodate the patellar prosthetic. There was no need for a lateral release. The trials were then removed, and the femoral hole plugged with a bone plug. The bone was prepared with pulsatile lavage, and dried with a sponge. Cement was applied and the final prosthetics placed. Excess cement was removed during and after cement curing. After confirming there was no extruded cement posteriorly, the final tibial insert was placed. The knee was copiously irrigated and the tourniquet deflated. Hemostasis was obtained. The capsule was closed with interrupted # 2 polyester sutures. The subcutaneous layer was closed with 3-0 Vicryl, and the skin with a running 3-0 V-Lock suture and Dermabond. An Aquacel Ag dressing was applied and the patient was taken to recovery having tolerated the procedure well. Post-operative Condition: stable Disposition: PACU Plan for aftercare: The patient will be maintained on a standard total knee replacement protocol with weight bearing as tolerated. The patient will receive aspirin and sequential compression devices for DVT prophylaxis. The patient will be discharged home when safe for the home environment.
[2021-03-22] MEDS: CEFAZOLIN 1 GM VIAL 2 GM IV (11:08)
--- NOTE | 2021-03-22 11:18 | SUR.OPER ---
Supine on padded OR bed. Pillow under head, arms secured on padded armboards <90 degree abduction. Safety belt across torso. Non-operative leg secured with tape over blanket over lower leg. Operative leg secured in DeMayo/Thiago/Nathe positioner. Foam padded brace at thigh of operative leg.
[2021-03-22] MEDS: BUPIVACAINE 0.25% W/ EPI 30 ML VIAL 60 ML INJ (11:26)
[2021-03-22] MEDS: TRANEXAMIC ACID 1,000 MG VIAL 1000 MG INJ (11:26)
[2021-03-22] MEDS: BUPIVACAINE LIPOSOME 266 MG/20 ML VIAL INJ (11:26)
[2021-03-22] MEDS: MORPHINE 4 MG/ML INJ INJ (11:27)
--- NOTE | 2021-03-22 12:33 | SUR.OPER ---
HEARING AIDES IN BILATERAL EARS UPON ARRIVAL TO THE PACA. UPPER PARTIAL IN PLACE AND LOWER IN LABELED CASE.
--- NOTE | 2021-03-22 12:49 | SUR.PHASEI ---
Pt arrived to PACU, airway self maintained, 02 2/l added, xray done. Pt with no c/o nausea or pain. Report called to VERN Jamison
--- NOTE | 2021-03-22 12:56 | SUR.PHASEI ---
Pt has hearing aids in x 2, dentures and rest of belongings transported up to room 211.
--- NOTE | 2021-03-22 13:10 | SUR.PHASEI ---
Pt transferred to room 211 by Kirstie and Rachael,RNs
[2021-03-22] MEDS: levETIRAcetam 250 MG TABLET 500 MG PO (13:51)
[2021-03-22] MEDS: LACTATED RINGERS 1,000 ML 100 ML IV ×2 (13:52→23:19)
--- NOTE | 2021-03-22 14:10 | PC.NURSE ---
PT RECEIVED TO ROOM 211 AT 1315, SHE IS ALERT/ORIENTED X 3 BUT A LITTLE REPETITIVE IN HER QUESTIONING. LUNGS CLEAR AND VSS REQUIRING O2 @ 1-2 L, DRESSING TO LEFT KNEE COVERED BY LARGE LAURA WRAP- PT HAS FULL FEELING TO HER LEFT EXTREMITY +CMS. ORIENTED TO ROOM, TV CONTROLS, AND CALL LIGHT WELL BED CONTROLS
[2021-03-22] MEDS: ACETAMINOPHEN 325 MG TABLET 650 MG PO ×2 (15:31→20:26)
--- NOTE | 2021-03-22 16:17 | PT.IIE ---
Current Diagnoses Unilateral primary osteoarthritis, left knee (03/22/21) Surgery Performed Operation Date: 03/22/21 10:15 Actual Procedures p Total Knee Arthroplasty(Left) - Isaiah Yang MD Medical History (Last Updated 03/17/21 @ 09:46 by Soila Daley RN) Anemia in chronic kidney disease Anesthesia Ataxia Breast cancer, right CKD (chronic kidney disease), stage III Collapsed lung Diabetes Facial bones, closed fracture GERD (gastroesophageal reflux disease) Gout Head injury Hearing impaired History of kidney stones History of seizure disorder History of subdural hematoma Hyperlipidemia Hypertension Hypocalcemia Hypothyroid Insomnia Kidney stones Metabolic acidosis Pneumonia Primary insomnia Proteinuria Seizures Shoulder fracture, left (04/2020) Sleep apnea Subdural hematoma (01/2017) Physical Therapy Inpatient Evaluation/Re-Eval M1 PT/OT-IP Prior Functional Status Start: 03/22/21 13:26 Freq: NEEDED Status: Active Protocol: Document 03/22/21 16:17 AW (Rec: 03/22/21 16:57 AW [id number]) Medical Review Prior Functional Status Medical History Reviewed Yes Communication WNL. Pt is an effective verbal communicator. Mobility and Gait Independent without assistive device for household mobility and shopping trips. Pt had a fall mohinder April resulting in left humerus fracture. Activities of Daily Living and IADL's Independent with all ADL's. Pt is an active front end driver. Prior Functional Level (Other details) Pt had subdural hematoma and seizures in 2016 with a short rehab stay following hospitallization at [facility] . Social History Household Members none Living Arrangements House Number of Floors (Floors) One Floor Number of Stairs To Enter/Railing? 5 SRI through garage with narrow bilateral rails. 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 She has friends and neighbors who will stay with her at discharge at least through Monday when she has her first outpatient PT appointment. M2 PT-IP Current Condition Start: 03/22/21 13:26 Freq: NEEDED Status: Active Protocol: Document 03/22/21 16:17 AW (Rec: 03/22/21 16:57 AW [id number]) Physical Therapy Current Condition Current Condition Evaluation Date 03/22/21 Treatment Diagnosis s/p L TKA; difficulty in walking Onset Date 03/22/21 Weight Bearing Status Weight Bearing Status Weight Bear as Tolerated M3 PT-IP Subjective Start: 03/22/21 13:26 Freq: NEEDED Status: Active Protocol: Document 03/22/21 16:17 AW (Rec: 03/22/21 16:57 AW [id number]) Subjective Physical Therapy Visit Type Type Initial Evaluation Visit Start Time 15:49 Visit Stop Time 16:17 Total Visit Minutes 28 Number of BENEFITS MANAGER Visits 0 Physical Therapy Visit Comments Patient Comments Pt is willing to participate with PT Patient Goals Return home with friend and neighbor support. Therapy Pain Assessment Pain When Pain Assessed During Mobility Pain Present Pain Present Pain Reported Location left knee Intensity 5 Scale Used Numeric (0 - 10) Pain Management Techniques Apply Cold,Elevation,Timing of Activity with Medications M4 PT-IP Mobility and Gait Start: 03/22/21 13:26 Freq: NEEDED Status: Active Protocol: Document 03/22/21 16:17 AW (Rec: 03/22/21 16:57 AW [id number]) PT-Bed Mobility Assessment Supine to Sit Supine to Sit Contact Guard Assistance,1 Person Assistance Scooting Scooting to Edge of Bed Contact Guard Assistance PT-Transfer Assessment Sit to and From Stand Sit to and from Stand Minimal Assistance,1 Person Assistance,2 Person Assistance Equipment Transfer Assistive Device Gait Belt,Front Wheeled Walker Orthotic/Prosthetic Devices or Brace: No Transfers Transfer Destination Chair,Bedside Commode Transfer Technique Stand Step Pivot Transfer Ability Level of Assist Contact Guard Assistance,1 Person Assistance,Use of Upper Extremities Comments Mobility Comments Pt was lying in bed as PT arrived. BP 109/62 HR 70. She completed supine to sit toward right side of bed, using BUE to move her left leg. Sitting EOB, she was able to stand using FWW min assist. She ambulated ~8 feet with FWW CGA and sat on the chair. She then transferred to [facility] set up on her right side CGA using FWW. She was unable to void and transferred back to the chair in similar fashion. Pt was left with call light and tray table in reach, fresh ice pack applied. Gait Assessment Gait Gait Assistance Required: Contact Guard Assist Distance (Feet) 8 Able to Maintain Weight Bearing Status Yes During Gait Assistive Devices Assistive Device Gait Belt,Front Wheeled Walker Orthotic/Prosthetic Devices or Brace: No Gait Deviations General Gait Pattern Antalgic,Decreased Stride Length,Decreased Feet Clearance,Step-to Gait Factors Limiting Gait Function Factors Limiting Gait Function Decreased Strength,Limited Range of Motion,Pain,Poor Balance Comments Gait Comments See mobility comments for details. Stair Climbing Assessment Comments Stair Climbing Comments Not assessed. PT-Balance Assessment Sitting Balance and Reactions Static Sitting Balance Ability Good Dynamic Sitting Balance Ability Good Standing Balance and Reactions Static Standing Balance Ability Good Dynamic Standing Balance Ability Fair Device Used FWW M5 PT-IP Objective Assessments Start: 03/22/21 13:26 Freq: NEEDED Status: Active Protocol: Document 03/22/21 16:17 AW (Rec: 03/22/21 16:57 AW [id number]) Orientation Orientation/Cognition Level of Alertness Alert Orientation Name,Day of Week,Place, Situation Language Function Ability No Deficits Noted Safety Awareness Understands Safety Issues Memory Description No Deficits Noted Gross Range of Motion Upper Extremity ROM Assessment Right Impaired Impairments IR limited after humerus fracture 10 months ago Lower Extremity ROM Assessment Left Impaired Strength Lower Extremity Strength Assessment Left Impaired Hip 4-/5 Ankle 4/5 Comments Strength Comments RLE grossly 4+/5 Sensation Assessment Sensation Gross Sensation WNL M6 PT-IP Treatment Start: 03/22/21 13:26 Freq: NEEDED Status: Active Protocol: Document 03/22/21 16:17 AW (Rec: 03/22/21 16:57 AW [id number]) Physical Therapy Treatment Exercises Exercises Ankle Pumps,Quad Sets,Heel Slides,Passive Knee Extension Hang Education Education Provided Weight Bearing Status,Post-Op Packet,Safety Other Treatments Other Treatment Performed Educated pt on PT plan of care , weightbearing status, and safe use of FWW. M7 PT-IP Assessment and Plan Start: 03/22/21 13:26 Freq: NEEDED Status: Active Protocol: Document 03/22/21 16:17 AW (Rec: 03/22/21 16:57 AW [id number]) PT Summary Assessment and Plan Potential Rehabilitation Potential Good Status of Condition at Evaluation Evolving Summary Impairments Pain,ROM,Strength,Balance,Bed Mobility,Transfers,Gait Assessment Summary Joleen is a 80 yo woman seen for PT evaluation on POD0 following L TKA. She is independent in all regards at baseline and lives alone. She required CGA to min assist for mobility with FWW on assessment. PT anticipates she will progress during her stay and be safe to discharge home with friends/leelas to stay with her until next week. Her outpatient PT is scheduled to begin on Monday. Goals Bed Mobility Goal Standby Assistance Transfer Goal Standby Assistance,Front Wheeled Walker Gait Goal Standby Assistance,Front Wheel Walker Gait Distance 200 Other Goals - up/down 5 steps with B rails SBA Days to Meet Goals 2 Frequency of Treatment Frequency Of Treatment Twice a Day Treatment Plan Physical Therapy Treatment Plan Bed Mobility Training,Transfer Training,Gait Training, Therapeutic Exercise,Balance Retraining,Post Op Education, Discharge Planning,Hot or Cold Pack Other Recommendations and Next Treatment gait training, stairs Focus Precautions Other Precautions WBAT LLE Recommendations To Nursing Amount of Assist Needed 1 Person Assist Discharge Recommendations PT Discharge Recommendations Home with Assistance, Outpatient PT Transportation Needs at Discharge Private Vehicle
[2021-03-22] MEDS: ATORVASTATIN 20 MG TABLET 10 MG PO (16:57)
[2021-03-22] MEDS: INSULIN LISPRO 100 UNIT/ML 3ML VIAL SUBCUT ×2 (16:59→22:01)
[2021-03-22] MEDS: DOCUSATE 100 MG CAPSULE PO (20:26)
[2021-03-22] MEDS: TRAZODONE 50 MG TABLET PO (20:26)
[2021-03-22] MEDS: ASPIRIN EC 81 MG TABLET PO (20:26)
[2021-03-22] MEDS: MELATONIN 3 MG TABLET 6 MG PO (21:58)
[2021-03-22] MEDS: OXYCODONE IR 5 MG TABLET PO (21:58)
--- NOTE | 2021-03-22 23:29 | PC.NURSE ---
patient LTKA, LAURA wrap CDI, tolerating ice pack. OOB 1pa w/ FWW and PT. cpox, desats to high 80's, reminders to TCDB, use IS. 1lpm via NC.
[2021-03-23] VITALS (8 sets, daily range): BP systolic 125–143; BP diastolic 53–70; PULSE 73–93; RESP 16–18; TEMP 36.2–37.1; O2SAT 93–98
--- NOTE | 2021-03-23 01:03 | PC.NURSE ---
Patient is alert and oriented. Breath sounds CTA but is on oxygen at 1L/min per NC with sat of 95%. Was noted to desat when asleep into upper 80's so increased oxygen to 2L/min. Just now continuous oximeter again alarming and patient found to be mouth breathing and sat down to 85% so nasal canula placed in patient mouth and oxygen increased to 3L/min with sat improving to > 92%. HRR. Denies nausea. BT hypoactive but states she is passing flatus. Has voided since surgery but was incontinent of urine and patient reports she has urgency and incontinence normally. Is able to move herself in bed. Up to bathroom with walker and 1 assist due to weakness in left LE. Aquacel dressing intact and covered with angel wrap; CDI. CMS intact except unable to lift leg off bed. Denies pain. Wearing bilateral calf SCD's. Fall risk score is high and bed alarm is activated.
[2021-03-23] MEDS: levETIRAcetam 250 MG TABLET 500 MG PO ×3 (01:48→22:09)
[2021-03-23] MEDS: OXYCODONE IR 5 MG TABLET PO ×5 (04:01→22:02)
[2021-03-23] MEDS: LEVOTHYROXINE 75 MCG TABLET PO (05:33)
[2021-03-23] MEDS: PANTOPRAZOLE DR 40 MG TABLET PO (05:33)
[2021-03-23 05:56] LABS: Hemoglobin 10.3 g/dL (12.0-16.0)
--- NOTE | 2021-03-23 07:25 | P.PN_ITS ---
Subjective Subjective Date Patient Seen: 03/23/21 Time Patient Seen: 07:26 Interval history: The patient reports significant pain control difficulties. She was nauseated and threw up her dinner last night. She is concerned that her blood sugars are not stable. Exam Vital Signs (past 8 hours): - 03/23/21 03:55 Temperature 97.2 F L Pulse Rate 73 Respiratory Rate 16 Blood Pressure 131/70 Pulse Oximetry 98 Oxygen Delivery Method Nasal Cannula Oxygen Flow Rate 2 Narrative Exam Narrative: Left knee wound is dressed with no drainage on the bandage. Calf is soft. Light touch and motion are intact to left lower extremity. Objective Labs Result Diagrams: 03/23/21 05:41 Labs: Laboratory Results - last 24 hr 03/23/21 05:41 Hgb 10.3 L Hct 32.0 L PFSH Medical History (Updated 03/17/21 @ 09:46 by Soila Daley RN) Anemia in chronic kidney disease Anesthesia Ataxia Breast cancer, right CKD (chronic kidney disease), stage III Collapsed lung Diabetes Facial bones, closed fracture GERD (gastroesophageal reflux disease) Gout Head injury Hearing impaired History of kidney stones History of seizure disorder History of subdural hematoma Hyperlipidemia Hypertension Hypocalcemia Hypothyroid Insomnia Kidney stones Metabolic acidosis Pneumonia Primary insomnia Proteinuria Seizures Shoulder fracture, left (04/2020) Sleep apnea Subdural hematoma (01/2017) Surgical History (Updated 03/17/21 @ 09:45 by Soila Daley RN) H/O hysterectomy for benign disease H/O right breast biopsy History of annmarie hole surgery (~01/2017) History of parathyroid surgery History of tonsillectomy Hx of bilateral cataract extraction Hx of lithotripsy Status post right breast biopsy Family History Sister Cancer Stroke Social History household members: none Smoking Status: Former smoker alcohol intake: current Assessment & Plan Post-op Postoperative Procedures: Procedures Operation Date: 03/22/21 10:15 Actual Procedure Side Surgeon p Total Knee Arthroplasty Left Isaiah Yang MD Postoperative day: 1 Postoperative status narrative: The patient is stable postoperative day 1 status post left total knee replacement. She has had significant postoperative nausea and has made minimal attempts at ambulation. She has limited help at home. Postoperative plan: routine post-op care, ambulate and advance diet Postoperative plan narrative: It is unlikely the patient will be able to go home today. She has a mild post hemorrhagic anemia which does not require treatment. She will need to be able to tolerate a regular diet before discharge. She n eeds to make additional progress with ambulation. We will work hard on physical therapy today and likely discharge will be tomorrow. Time Spent With Patient Time with patient: less than 15 minutes
[2021-03-23] MEDS: allopurinoL 100 MG TABLET PO (08:33)
[2021-03-23] MEDS: FERROUS SULFATE 325 MG TABLET PO (08:34)
[2021-03-23] MEDS: ACETAMINOPHEN 325 MG TABLET 650 MG PO ×3 (08:34→22:01)
[2021-03-23] MEDS: lisinopriL 5 MG TABLET PO (08:34)
[2021-03-23] MEDS: CHOLECALCIFEROL (VITAMIN D3) 1,000 UNIT TABLET 4000 UNIT PO (08:34)
[2021-03-23] MEDS: DOCUSATE 100 MG CAPSULE PO ×2 (08:34→22:01)
[2021-03-23] MEDS: ASPIRIN EC 81 MG TABLET PO ×2 (08:34→22:02)
[2021-03-23] MEDS: GLIMEPIRIDE 2 MG TABLET 1 MG PO (08:34)
[2021-03-23] MEDS: AMLODIPINE 5 MG TABLET 10 MG PO (08:35)
[2021-03-23] MEDS: SODIUM BICARBONATE 650 MG TABLET 1300 MG PO (08:35)
[2021-03-23] MEDS: ANASTROZOLE 1 MG TABLET PO (08:36)
[2021-03-23] MEDS: INSULIN LISPRO 100 UNIT/ML 3ML VIAL SUBCUT ×3 (08:36→17:39)
--- NOTE | 2021-03-23 10:46 | PT.IPTN ---
Current Diagnoses Unilateral primary osteoarthritis, left knee (03/22/21) Surgery Performed Operation Date: 03/22/21 10:15 Actual Procedures p Total Knee Arthroplasty(Left) - Isaiah Yang MD Physical Therapy Treatment Note M2 PT-IP Current Condition Start: 03/22/21 13:26 Freq: NEEDED Status: Active Protocol: Document 03/22/21 16:17 AW (Rec: 03/22/21 16:57 AW [id number]) Physical Therapy Current Condition Current Condition Evaluation Date 03/22/21 Treatment Diagnosis s/p L TKA; difficulty in walking Onset Date 03/22/21 Weight Bearing Status Weight Bearing Status Weight Bear as Tolerated M3 PT-IP Subjective Start: 03/22/21 13:26 Freq: NEEDED Status: Active Protocol: Document 03/23/21 10:46 AW (Rec: 03/23/21 11:54 AW [id number]) Subjective Physical Therapy Visit Type Type Treatment Note Visit Start Time 10:13 Visit Stop Time 10:46 Total Visit Minutes 33 Number of UNPAID INTERN Visits 0 Physical Therapy Visit Comments Patient Comments Pt is willing to participate with PT Therapy Pain Assessment Pain When Pain Assessed During Mobility Pain Present Pain Present Pain Reported Location left knee Intensity 6 Scale Used Numeric (0 - 10) Pain Management Techniques Apply Cold,Elevation,Timing of Activity with Medications M4 PT-IP Mobility and Gait Start: 03/22/21 13:26 Freq: NEEDED Status: Active Protocol: Document 03/23/21 10:46 AW (Rec: 03/23/21 11:54 AW [id number]) PT-Bed Mobility Assessment Supine to Sit Supine to Sit Contact Guard Assistance,1 Person Assistance PT-Transfer Assessment Sit to and From Stand Sit to and from Stand Minimal Assistance,1 Person Assistance,Use of Upper Extremities Equipment Transfer Assistive Device Gait Belt,Front Wheeled Walker Orthotic/Prosthetic Devices or Brace: No Transfers Transfer Destination Chair,Toilet Transfer Technique Stand Step Pivot Transfer Ability Level of Assist Contact Guard Assistance,1 Person Assistance,Use of Upper Extremities Comments Mobility Comments Pt was reclined in bed as PT arrived. BP 125/54 HR 85 SpO2 93% on room air. She agreed to get up from flat bed. She deepika to long sitting and used BUE to move her operative leg toward EOB CGA. She stood min A x 1 and used FWW to ambulate to the toilet. She transferred with heavy use of grab bar even though she states she has no grab bars at home. Pt stood from the toilet with heavy reliance on the grab bar and needed min assist for balance support as she managed her briefs. She walked to the chair with FWW CGA and sat with poorly- controlled descent in spite of cues to use arms to slow herself down. Pt agreed to practice sit to stand. Educated pt on techniques. She completed two reps min assist and one last rep mod assist as she fatigued. Pt was left in the chair with call light and tray table in reach. Gait Assessment Gait Gait Assistance Required: Contact Guard Assist Distance (Feet) 30 Able to Maintain Weight Bearing Status Yes During Gait Assistive Devices Assistive Device Gait Belt,Front Wheeled Walker Orthotic/Prosthetic Devices or Brace: No Gait Deviations General Gait Pattern Antalgic,Decreased Stride Length,Decreased Feet Clearance,Step-to Gait Factors Limiting Gait Function Factors Limiting Gait Function Decreased Strength,Limited Range of Motion,Pain,Poor Balance Comments Gait Comments Pt initiated ambulation with excess L knee flexion. Educated pt to land with heel strike or flat foot to encourage knee extension and pt was able to correct pattern with improved stability. Stair Climbing Assessment Comments Stair Climbing Comments Not assessed. Pt agrees to attempt at PM session. PT-Balance Assessment Sitting Balance and Reactions Static Sitting Balance Ability Good Dynamic Sitting Balance Ability Good Standing Balance and Reactions Static Standing Balance Ability Fair Dynamic Standing Balance Ability Fair Device Used FWW M5 PT-IP Objective Assessments Start: 03/22/21 13:26 Freq: NEEDED Status: Active Protocol: Document 03/22/21 16:17 AW (Rec: 03/22/21 16:57 AW [id number]) Orientation Orientation/Cognition Level of Alertness Alert Orientation Name,Day of Week,Place, Situation Language Function Ability No Deficits Noted Safety Awareness Understands Safety Issues Memory Description No Deficits Noted Gross Range of Motion Upper Extremity ROM Assessment Right Impaired Impairments IR limited after humerus fracture 10 months ago Lower Extremity ROM Assessment Left Impaired Strength Lower Extremity Strength Assessment Left Impaired Hip 4-/5 Ankle 4/5 Comments Strength Comments RLE grossly 4+/5 Sensation Assessment Sensation Gross Sensation WNL M6 PT-IP Treatment Start: 03/22/21 13:26 Freq: NEEDED Status: Active Protocol: Document 03/23/21 10:46 AW (Rec: 03/23/21 11:54 AW [id number]) Physical Therapy Treatment Exercises Exercises Quad Sets,Heel Slides Education Education Provided Weight Bearing Status,Safety M7 PT-IP Assessment and Plan Start: 03/22/21 13:26 Freq: NEEDED Status: Active Protocol: Document 03/23/21 10:46 AW (Rec: 03/23/21 11:54 AW [id number]) PT Summary Assessment and Plan Summary Impairments Pain,ROM,Strength,Balance,Bed Mobility,Transfers,Gait, Activity Tolerance Progress Towards Goals Slow Progress due to Pain Assessment Summary Joleen is progressing slowly secondary to pain. She was able to improve her gait pattern in response to education and cues but does provide up to min assist for balance support in static stance and up to mod assist for sit to stand. PT will continue to assess for discharge plan. Pt to work on stair climbing at PM session. Pt agreed to have her friend attend caregiver training at 11:00 Monday AM. Goals Bed Mobility Goal Standby Assistance Transfer Goal Standby Assistance,Front Wheeled Walker Gait Goal Standby Assistance,Front Wheel Walker Gait Distance 200 Other Goals - up/down 5 steps with B rails SBA Days to Meet Goals 2 Frequency of Treatment Frequency Of Treatment Twice a Day Treatment Plan Physical Therapy Treatment Plan Bed Mobility Training,Transfer Training,Gait Training, Therapeutic Exercise,Balance Retraining,Post Op Education, Discharge Planning,Hot or Cold Pack Other Recommendations and Next Treatment gait training, stairs, CGT Wed [facility] at 1100 Precautions Other Precautions WBAT LLE Recommendations To Nursing Amount of Assist Needed 1 Person Assist Discharge Recommendations PT Discharge Recommendations Home with Assistance, Outpatient PT Transportation Needs at Discharge Private Vehicle
--- NOTE | 2021-03-23 14:24 | CM.DANOTE ---
DCP: Case received, EMR reviewed and met with patient. Introduced self and role. Was able to obtain information regarding patient's baseline activity status prior to surgery, as well as her current living situation. DCP assessment completed with information currently available. Patient is a 80 year old female who admitted yesterday morning to the care of the orthopedic team. PCP: Dr. Fischer. Payer: confirmed: [facility]. Patient came to the hospital via private vehicle for a surgical procedure. She had left total knee arthroplasty. Patient has had history of knee pain. Met with patient in her room. She was laying in bed, alert and oriented, stated, she was having some discomfort. Confirmed with her that she resides in [place] alone. She has family out of town, in the [facility]. She has a friend named Tammy, who will be staying with her for a week. At baseline, patient drives, has a cane if needed. She stated that she has [facility] set up, but she is concerned that it may be difficult for her to get there, especially when her friend leaves, if she is still uncomfortable. Mentioned to her that home health is also an option to consider, and patient indicated, She has had [facility] before. P: DCP to continue to follow. Will see how she does with P.T, and their recommendations. Patient most likely will be ready to discharge tomorrow, and will see if she will be able to do outpatient therapy versus home health. Sepideh Fernandes RN/Manager Gyn
--- NOTE | 2021-03-23 14:32 | PT.IPTN ---
Current Diagnoses Unilateral primary osteoarthritis, left knee (03/23/21) Surgery Performed Operation Date: 03/22/21 10:15 Actual Procedures p Total Knee Arthroplasty(Left) - Isaiah Yang MD Physical Therapy Treatment Note M2 PT-IP Current Condition Start: 03/22/21 13:26 Freq: NEEDED Status: Active Protocol: Document 03/22/21 16:17 AW (Rec: 03/22/21 16:57 AW [id number]) Physical Therapy Current Condition Current Condition Evaluation Date 03/22/21 Treatment Diagnosis s/p L TKA; difficulty in walking Onset Date 03/22/21 Weight Bearing Status Weight Bearing Status Weight Bear as Tolerated M3 PT-IP Subjective Start: 03/22/21 13:26 Freq: NEEDED Status: Active Protocol: Document 03/23/21 14:32 AB (Rec: 03/23/21 15:41 AB [id number]) Subjective Physical Therapy Visit Type Type Treatment Note Visit Start Time 14:32 Visit Stop Time 15:20 Total Visit Minutes 48 Number of CLEAN UP PERSON Visits 0 Physical Therapy Visit Comments Patient Comments pt is agreeable to do PT Therapy Pain Assessment Pain When Pain Assessed At Rest Pain Present Pain Present Pain Reported Location left knee Intensity 5 Scale Used Numeric (0 - 10) Pain Behaviors Guarding,Holding Area Pain Management Techniques Apply Cold,Distraction, Modification of Treatment,Re- positioning,Timing of Activity with Medications M4 PT-IP Mobility and Gait Start: 03/22/21 13:26 Freq: NEEDED Status: Active Protocol: Document 03/23/21 14:32 AB (Rec: 03/23/21 15:41 AB [id number]) PT-Bed Mobility Assessment Supine to Sit Supine to Sit Standby Assistance,Bedrails Sit to Supine Sit to Supine Moderate Assistance,Bedrails PT-Transfer Assessment Sit to and From Stand Sit to and from Stand Contact Guard Assistance, Minimal Assistance,1 Person Assistance,Use of Upper Extremities Equipment Transfer Assistive Device Gait Belt,Front Wheeled Walker Orthotic/Prosthetic Devices or Brace: No Transfers Transfer Destination Chair Transfer Technique ambulated Transfer Ability Level of Assist Contact Guard Assistance, Minimal Assistance,1 Person Assistance,Use of Upper Extremities Comments Mobility Comments pt completed supine to sit SBA used bed rail to assist. pt completed sit to stand CGA to min A x 2 attempts to complete the task and cues for positioning and techniques. pt ambulated in room ~ 20 ft using FWW CGA to min A and cues for L quads activation. slight knee buckling with terminal stance phase. pt sat on chair. completed sit to stand from chair CGA to min A. instructed to do L single leg stand and able to stand for ~ 1 sec with use of FWW. pt agreed to do stairs. ambulated ~ 20 ft using FWW CGA to min A and cues. c/o increase pain. assisted pt to the stairs. educated pt on on stair climbing. pt completed up/ down steps using bilateral rails min A and cues. pt assisted back to her room. ambulated from w/c to bed using fWW CGA to min A. completed sit to supine x 2 attempts mod A with LLE elevation to bed and positioning. positioned pt in bed. call light and table placed within reach. pt required cues throughout tx session and seems drowsy/ sleepy. pt stated that she did not sleep well last night and only slept at 2am. pt stated that her friend will come in a few minutes before 11 tomorrow am for caregiver training. Gait Assessment Gait Gait Assistance Required: Contact Guard Assist,Minimum Assistance,1 Person Assist Distance (Feet) 25 Able to Maintain Weight Bearing Status Yes During Gait Assistive Devices Assistive Device Gait Belt,Front Wheeled Walker Orthotic/Prosthetic Devices or Brace: No Gait Deviations General Gait Pattern Antalgic,Decreased Stride Length,Decreased Feet Clearance,Step-to Gait Factors Limiting Gait Function Factors Limiting Gait Function Decreased Activity Tolerance, Decreased Strength,Difficulty Following Directions,Limited Range of Motion,Pain,Poor Balance,Poor Safety Awareness Stair Climbing Assessment Evaluation Level of Assist On Stairs Minimal Assistance Devices Stair Climbing Assistive Devices Left Railing,Right Railing Technique/Endurance Stair Climbing Direction Ascend and Descend Stair Climbing Technique Step to Step Number of Steps Climbed 3 Stair Climbing Set # Repetitions (reps) 1 M5 PT-IP Objective Assessments Start: 03/22/21 13:26 Freq: NEEDED Status: Active Protocol: Document 03/22/21 16:17 AW (Rec: 03/22/21 16:57 AW [id number]) Orientation Orientation/Cognition Level of Alertness Alert Orientation Name,Day of Week,Place, Situation Language Function Ability No Deficits Noted Safety Awareness Understands Safety Issues Memory Description No Deficits Noted Gross Range of Motion Upper Extremity ROM Assessment Right Impaired Impairments IR limited after humerus fracture 10 months ago Lower Extremity ROM Assessment Left Impaired Strength Lower Extremity Strength Assessment Left Impaired Hip 4-/5 Ankle 4/5 Comments Strength Comments RLE grossly 4+/5 Sensation Assessment Sensation Gross Sensation WNL M6 PT-IP Treatment Start: 03/22/21 13:26 Freq: NEEDED Status: Active Protocol: Document 03/23/21 14:32 AB (Rec: 03/23/21 15:41 AB [id number]) Physical Therapy Treatment Education Education Provided Safety M7 PT-IP Assessment and Plan Start: 03/22/21 13:26 Freq: NEEDED Status: Active Protocol: Document 03/23/21 14:32 AB (Rec: 03/23/21 15:41 AB [id number]) PT Summary Assessment and Plan Potential Rehabilitation Potential Good Summary Impairments Pain,ROM,Strength,Balance, Coordination,Sensation,Tone, Cognition,Bed Mobility, Transfers,Gait,Activity Tolerance Progress Towards Goals Slow Progress due to Pain Assessment Summary pt requiring CGA to min A with transfers and ambulation using FWW. caregiver training set up at 11 am tomorrow. will continue to assess progress. Goals Bed Mobility Goal Standby Assistance Transfer Goal Standby Assistance,Front Wheeled Walker Gait Goal Standby Assistance,Front Wheel Walker Gait Distance 200 Other Goals - up/down 5 steps with B rails SBA Days to Meet Goals 5 Frequency of Treatment Frequency Of Treatment Twice a Day Treatment Plan Physical Therapy Treatment Plan Bed Mobility Training,Transfer Training,Gait Training, Therapeutic Exercise,Balance Retraining,Post Op Education, Discharge Planning,Hot or Cold Pack Other Recommendations and Next Treatment Caregiver trainin/11 WED @ [facility] 11 am Precautions Other Precautions WBAT LLE Recommendations To Nursing Amount of Assist Needed 1 Person Assist Discharge Recommendations PT Discharge Recommendations Home with Assistance, Outpatient PT Transportation Needs at Discharge Private Vehicle
[2021-03-23] MEDS: ATORVASTATIN 20 MG TABLET 10 MG PO (22:01)
[2021-03-23] MEDS: TRAZODONE 50 MG TABLET PO (22:09)
[2021-03-23] MEDS: SODIUM CHLORIDE 0.9% FLUSH 10 ML IV (22:18)
--- NOTE | 2021-03-24 00:44 | PC.NURSE ---
Patient is alert and oriented. Breath sounds CTA with RA sat of 94%. HRR. Denies nausea. BT present and is passing flatus. Denies dysuria, frequency or urgency and has had control of bladder without dribbling today; wearing small pad as does have history of stress incontinence. Is able to move herself in bed. Out of bed with walker and 1 assist. Aquacel dressing to left knee CDI and covered with angel wrap; angel rewrapped at shift change as tightness causing discomfort and now states she is pain free. CMS intact except is still not able to lift left leg off bed. Wearing bilateral calf SCD's. Fall risk score is high and bed alarm is activated.
[2021-03-24] MEDS: OXYCODONE IR 5 MG TABLET PO ×2 (02:12→10:23)
[2021-03-24] MEDS: LEVOTHYROXINE 75 MCG TABLET 150 MCG PO (05:41)
[2021-03-24] MEDS: PANTOPRAZOLE DR 40 MG TABLET PO (05:42)
[2021-03-24 05:50] VITALS: BP 138/66; PULSE 84; RESP 16; TEMP 36.2; O2SAT 94
--- NOTE | 2021-03-24 07:07 | PM.DS.1 ---
History of Present Illness History of Present Illness Date Patient Seen: 03/24/21 Time Patient Seen: 07:07 Chief complaint: OPB Narrative: The history and physical is contained in the chart previously completed note. Please refer to that note for this information. Discharge Providers Provider Date of admission: 03/23/21 12:02 Discharge Date: 03/24/21 Primary care physician: Lucy Santamaria PA-C Consults: 03/22/21 13:20 Consult to Discharge Planning Routine Comment: Consult to Physical Therapy Evaluate & Treat Comment: Physician Instructions: postop TKA protocol Consult to Respiratory Therapy Evaluate & Treat Comment: Physician Instructions: Evaluate and treat Discharge provider: Isaiah Yang MD Summary Hospital Course Discharge Diagnosis: 1. Left knee osteoarthritis 2. Mild post hemorrhagic anemia Hospital Course: The patient was admitted to the hospital and taken directly to the operating room on March 22, 2021. She underwent a left total knee replacement without complications. She made slow progress with physical therapy but appeared to be ready for discharge on postoperative day 2. She did have a mild post hemorrhagic anemia which did not require specific treatment. Status at Discharge Cognitive/behavioral status at discharge: oriented Functional status at discharge: uses cane/walker Overall status at discharge: patient is progressing back to baseline Time Spent with Patient Time spent: Less than 30 minutes Exam Vital Signs (past 8 hours): - 03/23/21 23:38 03/24/21 05:50 Temperature 97.2 F L 97.1 F L Pulse Rate 82 84 Respiratory Rate 16 16 Blood Pressure 132/67 138/66 Pulse Oximetry 94 94 Oxygen Delivery Method Room Air Oxygen Flow Rate 0 Narrative Exam Narrative: Left knee wound is dressed with no drainage on the bandage. Calf is soft. Light touch and motion are intact in the left lower extremity. Objective Labs Result Diagrams: 03/23/21 05:41 [facility] Medical History (Updated 03/17/21 @ 09:46 by Soila Daley RN) Anemia in chronic kidney disease Anesthesia Ataxia Breast cancer, right CKD (chronic kidney disease), stage III Collapsed lung Diabetes Facial bones, closed fracture GERD (gastroesophageal reflux disease) Gout Head injury Hearing impaired History of kidney stones History of seizure disorder History of subdural hematoma Hyperlipidemia Hypertension Hypocalcemia Hypothyroid Insomnia Kidney stones Metabolic acidosis Pneumonia Primary insomnia Proteinuria Seizures Shoulder fracture, left (04/2020) Sleep apnea Subdural hematoma (01/2017) Surgical History (Updated 03/17/21 @ 09:45 by Soila Daley RN) H/O hysterectomy for benign disease H/O right breast biopsy History of annmarie hole surgery (~01/2017) History of parathyroid surgery History of tonsillectomy Hx of bilateral cataract extraction Hx of lithotripsy Status post right breast biopsy Family History Sister Cancer Stroke Social History household members: none Smoking Status: Former smoker alcohol intake: current Discharge Assessment & Plan Assessment and Plan Assessment: Stable postoperative day 2 status post left total knee replacement. At the time of this dictation it is anticipated that she will improve enough with physical therapy that she will be ready for discharge later today. She has had a mild post hemorrhagic anemia that has not required specific treatment. Plan of Treatment: Discharge today. Follow up in my office in 10-14 days. Discharge prescription for oxycodone has been sent to [facility]. She has also been counseled in the use of Tylenol for pain relief and low-dose aspirin for DVT prophylaxis. Discharge Plan Discharge Plan Patient Disposition: Home Discharge orders & Medications Prescriptions: New acetaminophen 325 mg Tablet 650 mg PO TID 30 Days Qty: 180 RF: 0 aspirin 81 mg Tablet,Delayed Release (Dr/Ec) 81 mg PO BID 42 Days Qty: 84 RF: 0 oxycodone 5 mg Tablet 5 mg PO Q4H PRN (Reason: Pain, Moderate (4-6)) Qty: 40 RF: 0 Continued allopurinol 300 mg tablet 100 mg PO DAILY RF: 0 amlodipine 5 mg tablet 10 mg PO DAILY RF: 0 levetiracetam 500 mg tablet 500 mg PO Q12H RF: 0 simvastatin 10 mg tablet 10 mg PO QPM RF: 0 sodium bicarbonate 325 mg tablet 1,300 mg PO DAILY RF: 0 levothyroxine [Synthroid] 75 mcg tablet 75 mcg PO DIRECTED RF: 0 cholecalciferol (vitamin D3) 2,000 unit capsule 4,000 unit PO DAILY RF: 0 cyclobenzaprine 10 mg Tablet 10 mg PO DAILY PRN (Reason: chest spasms) RF: 0 ondansetron 4 mg tablet,disintegrating 4 mg PO TID-QID PRN (Reason: nausea and vomiting) Qty: 10 RF: 0 trazodone 50 mg Tablet 50 mg PO BEDTIME RF: 0 omeprazole 40 mg Capsule,Delayed Release(Dr/Ec) 40 mg PO DAILY RF: 0 ferrous sulfate [iron] 325 mg (65 mg iron) Tablet 325 mg PO DAILY RF: 0 lisinopril 5 mg Tablet 5 mg PO DAILY RF: 0 anastrozole 1 mg tablet 1 mg PO DAILY RF: 0 glimepiride 1 mg tablet 1 mg PO QAM RF: 0 melatonin 5 mg capsule 5 mg PO BEDTIME PRN (Reason: Sleep) RF: 0 Discontinued acetaminophen 325 mg capsule 325 mg PO Q6H PRN (Reason: Pain) RF: 0 Follow up/Referrals: Lucy Santamaria PA-C [Primary Care Provider] - Isaiah Yang MD [Physician] - 2 Weeks Discharge Health Status Multidrug resistant organism: No MDRO Diet/Activity/Treatments Diet: Diet as Tolerated and Carb-consistent/Diabetic Activity: You may bear weight as tolerated on your left leg. Cold/Heat Therapy: Apply ice for 15 minutes every hour as needed to the left knee for pain control. Skin/Wound/Dressing Care Report to your healthcare provider any signs of infection, such as:: chills, fever, night sweats, increased pain, unusual drainage and unusual redness Dressing: You may remove the Elliot wrap 3 days after surgery and shower normally. Leave the deeper dressing in place until your follow-up. If the central strip of the deeper dressing becomes saturated with either water or blood, please call the office to have it evaluated. Visit Report/Discharge Packet Instructions: DI for Knee Replacement, DI for Prescription Opioid Use Stand Alone Forms: Surgery Discharge Discharge Data Primary Care Provider: Lucy Snatamaria Attending Provider: Isaiah Yang
[2021-03-24 07:48] VITALS: BP 125/70; PULSE 89; RESP 16; TEMP 36.6; O2SAT 96
--- NOTE | 2021-03-24 07:58 | CM.DPC ---
Addendum entered by EDOUARD Sims 03/24/21 12:43: ADD: Per ASSISTANT PRESS OPERATOR, pt was able to ambulate and participate in CG training but fatigued quite quickly and recommendation for HH and pt very agreeable as she is quite below baseline currently. Stable and safe for d/c but HH referral needed. Pt preference has been [facility] as she has utilized them in the past. SW made new referral to [facility] and faxed clinicals to review and F2F and MD orders for d/c home today. BF Original Note: DCP Discharge Home Per Ortho MD, anticipated that pt is medically stable to d/c home later today pending further PT. Per PT, CG training set up this morning at 1100 with friend to confirm safe d/c home with assist and outpt PT. Plan: SW to follow after CG training with PT to confirm safe d/c home with friend assist and no further needs today. EDOUARD Sims
[2021-03-24] MEDS: ACETAMINOPHEN 325 MG TABLET 650 MG PO (08:45)
[2021-03-24] MEDS: allopurinoL 100 MG TABLET PO (08:45)
[2021-03-24] MEDS: SODIUM BICARBONATE 650 MG TABLET 1300 MG PO (08:45)
[2021-03-24] MEDS: FERROUS SULFATE 325 MG TABLET PO (08:45)
[2021-03-24] MEDS: lisinopriL 5 MG TABLET PO (08:45)
[2021-03-24] MEDS: AMLODIPINE 5 MG TABLET 10 MG PO (08:45)
[2021-03-24] MEDS: ASPIRIN EC 81 MG TABLET PO (08:45)
[2021-03-24] MEDS: CHOLECALCIFEROL (VITAMIN D3) 1,000 UNIT TABLET 4000 UNIT PO (08:45)
[2021-03-24] MEDS: DOCUSATE 100 MG CAPSULE PO (08:45)
[2021-03-24] MEDS: ANASTROZOLE 1 MG TABLET PO (08:46)
[2021-03-24] MEDS: INSULIN LISPRO 100 UNIT/ML 3ML VIAL SUBCUT (08:46)
[2021-03-24] MEDS: GLIMEPIRIDE 2 MG TABLET 1 MG PO (10:22)
[2021-03-24] MEDS: levETIRAcetam 250 MG TABLET 500 MG PO (10:23)
--- NOTE | 2021-03-24 10:47 | PC.NURSE ---
Patient has aquacel dressing to her l.knee that is cdi, up with one person assist and walker. Patient has a hard time with getting her leg out of the bed and back in the bed. Up and voided 550cc of urine. Just given 5mg of po oxycodone as she is going to have care taker training aroud 11am. CMS wnl and ppx2, patient resting supine in bed.
--- NOTE | 2021-03-24 10:48 | PC.NURSE ---
Rx return issue. pt requested oxycodone 5mg around 1000 this AM. I removed the medication but unbeknownst to me, nurse Jodie also removed the same medication. Jodie witnessed the return of my oxycodone 5mg but the return drawer never opened. I called pharmacy who suggested we perform an inventory count to see if the count was off. Jodie and I performed an inventory count and the count was correct. Jodie administered her oxycodone 5mg but I still had my pill. At this point Timothy from Pharmacy came up and placed the oxycodone pill into the [facility] nurses station return pill bin.
--- NOTE | 2021-03-24 12:04 | PT.IPTN ---
Current Diagnoses Unilateral primary osteoarthritis, left knee (03/23/21) Surgery Performed Operation Date: 03/22/21 10:15 Actual Procedures p Total Knee Arthroplasty(Left) - Isaiah Yang MD Physical Therapy Treatment Note M2 PT-IP Current Condition Start: 03/22/21 13:26 Freq: NEEDED Status: Active Protocol: Document 03/22/21 16:17 AW (Rec: 03/22/21 16:57 AW [id number]) Physical Therapy Current Condition Current Condition Evaluation Date 03/22/21 Treatment Diagnosis s/p L TKA; difficulty in walking Onset Date 03/22/21 Weight Bearing Status Weight Bearing Status Weight Bear as Tolerated M3 PT-IP Subjective Start: 03/22/21 13:26 Freq: NEEDED Status: Active Protocol: Document 03/24/21 11:02 SP (Rec: 03/24/21 13:03 SP [id number]) Subjective Physical Therapy Visit Type Type Treatment Note Visit Start Time 11:02 Visit Stop Time 12:04 Total Visit Minutes 62 Notes Pt's friend and neighbor completed caregiver training: donned gait belt and provided physical assist required throught tx. Number of SPOUT LINER Visits 1 Physical Therapy Visit Comments Patient Comments pt is agreeable to do PT Patient Goals Return home with friend and neighbor support. Therapy Pain Assessment Pain When Pain Assessed During Mobility Pain Present Pain Present Pain Reported Location left knee Intensity 3 Scale Used Numeric (0 - 10) Description With Movement Pain Behaviors Facial Grimacing Pain Management Techniques Distraction,Re-positioning, Timing of Activity with Medications M4 PT-IP Mobility and Gait Start: 03/22/21 13:26 Freq: NEEDED Status: Active Protocol: Document 03/24/21 11:02 SP (Rec: 03/24/21 13:03 SP [id number]) PT-Bed Mobility Assessment Supine to Sit Supine to Sit Standby Assistance Scooting Scooting to Edge of Bed Standby Assistance PT-Transfer Assessment Sit to and From Stand Sit to and from Stand Contact Guard Assistance, Minimal Assistance,1 Person Assistance,Use of Upper Extremities Equipment Transfer Assistive Device Gait Belt,Front Wheeled Walker Orthotic/Prosthetic Devices or Brace: No Transfers Transfer Destination Chair,Wheelchair Transfer Technique ambulated using fWW Transfer Ability Level of Assist Contact Guard Assistance,1 Person Assistance,Use of Upper Extremities Comments Mobility Comments SPOUT LINER instructed L postop knee exercises provided AAROM 90% A w/use of strap for self support 30 deg knee flexion tolerated. Supine > sit, scoot to EOB with HOB flat SBA w/ use of gait belt on LLE. Sit> stand CG- Min A using FWW, occasional cues for pushing from bed to stand, LLE positioned in front. SPOUT LINER instructed standing wt shift to increase LLE WB awareness, ambuated to sink and back to chair approx 10 ft CGA step to patterning with heavy BUE WB and cued L quad facilitation due to unsteady during WB. Stand>sit into chair CGA using BUE on chair arms. Seated rest for 3 min. Sit>Stand and ambulated to w/c in hallway, cued for heel toe and attempt receiprocal as can, modified stagger as distance progressed , approx 15 ft and sat in w/c CGA. Pushed pt in w/c to stairs. Sit>stand CGA, ascend/ descend 6 stairs step to proper patterning BHR CGA with occasional cues for caregiver positioning. Pt was able to walk back to room approx 70 ft w/ w/c follow, 3 stand stopped rests, little improvement in stagger stepping w/ moderate WB BUE on FWW w/ reported very tiring but wanted to make the distance. Pt returned to chair when in room CGA, able to scoot self back, reviewed seated heel slides for increasing ROM L knee. Pt is limited in ROM into flexion and time spent on education on techniques sitting to gain ROM. SPOUT LINER recommending HHPT to acclimate to home and lack of strength and endurance in standing with moderate BUE WB with R shld still not fully recovered from surgery earlier this year. Pt had call light and all needs in reach before left. Friend and neighbor in room when left. Gait Assessment Gait Gait Assistance Required: Contact Guard Assist,Minimum Assistance,1 Person Assist Distance (Feet) 70 Able to Maintain Weight Bearing Status Yes During Gait Assistive Devices Assistive Device Gait Belt,Front Wheeled Walker Orthotic/Prosthetic Devices or Brace: No Gait Deviations General Gait Pattern Antalgic,Decreased Stride Length,Decreased Feet Clearance,Step-to Gait,Wide Based Gait Factors Limiting Gait Function Factors Limiting Gait Function Decreased Activity Tolerance, Decreased Strength,Limited Range of Motion,Pain,Poor Balance,Poor Safety Awareness Comments Gait Comments Gait using FWW, step to progressed to stagger stepping on straight aways, cued heel toe, L knee flexion during swing through and ascend stairs, lacking flexion ROM. Stair Climbing Assessment Evaluation Level of Assist On Stairs Contact Guard Assistance,1 Person Assistance Devices Stair Climbing Assistive Devices Left Railing,Right Railing Technique/Endurance Stair Climbing Direction Ascend and Descend Stair Climbing Technique Step to Step Number of Steps Climbed 3 Stair Climbing Set # Repetitions (reps) 2 Comments Stair Climbing Comments see mobility comments. PT-Balance Assessment Sitting Balance and Reactions Static Sitting Balance Ability Normal Dynamic Sitting Balance Ability Good Standing Balance and Reactions Static Standing Balance Ability Fair Dynamic Standing Balance Ability Fair Device Used FWW M5 PT-IP Objective Assessments Start: 03/22/21 13:26 Freq: NEEDED Status: Active Protocol: Document 03/22/21 16:17 AW (Rec: 03/22/21 16:57 AW [id number]) Orientation Orientation/Cognition Level of Alertness Alert Orientation Name,Day of Week,Place, Situation Language Function Ability No Deficits Noted Safety Awareness Understands Safety Issues Memory Description No Deficits Noted Gross Range of Motion Upper Extremity ROM Assessment Right Impaired Impairments IR limited after humerus fracture 10 months ago Lower Extremity ROM Assessment Left Impaired Strength Lower Extremity Strength Assessment Left Impaired Hip 4-/5 Ankle 4/5 Comments Strength Comments RLE grossly 4+/5 Sensation Assessment Sensation Gross Sensation WNL M6 PT-IP Treatment Start: 03/22/21 13:26 Freq: NEEDED Status: Active Protocol: Document 03/24/21 11:02 SP (Rec: 03/24/21 13:03 SP [id number]) Physical Therapy Treatment Exercises Exercises Ankle Pumps,Quad Sets,Heel Slides,Supine Hip Abduction, Seated Knee Flexion/Extension Knee ROM Measurement 30 deg L knee flexion supine AAROM Education Education Provided Weight Bearing Status,Post-Op Packet,Safety Other Treatments Other Treatment Performed Educated pt on PT weightbearing status, and safe use of FWW. M7 PT-IP Assessment and Plan Start: 03/22/21 13:26 Freq: NEEDED Status: Active Protocol: Document 03/24/21 11:02 SP (Rec: 03/24/21 13:03 SP [id number]) PT Summary Assessment and Plan Potential Rehabilitation Potential Good Status of Condition at Evaluation Evolving Summary Impairments Pain,ROM,Strength,Balance, Coordination,Sensation,Tone, Cognition,Bed Mobility, Transfers,Gait,Activity Tolerance Progress Towards Goals Progressing Toward Goals,Slow Progress due to Pain,Slow Progress due to Activity Tolerance Assessment Summary Pt requires increased time for mobility due to decrease strength and answered all questions. CGA during all mobility using FWW. Pt continue Max initially > Min BUE WB on FWW, decreased strength and endurance in standing mobility recommending HHPT to improve functional mobility before starting outpt PT with pt in agreement. Pt is ok to return home with friend/ neighbor support when medically cleared. Goals Bed Mobility Goal Standby Assistance Transfer Goal Standby Assistance,Front Wheeled Walker Gait Goal Standby Assistance,Front Wheel Walker Gait Distance 200 Other Goals - up/down 5 steps with B rails SBA Days to Meet Goals 5 Frequency of Treatment Frequency Of Treatment Twice a Day Treatment Plan Physical Therapy Treatment Plan Bed Mobility Training,Transfer Training,Gait Training, Therapeutic Exercise,Balance Retraining,Post Op Education, Discharge Planning,Hot or Cold Pack Other Recommendations and Next Treatment LE ex, ROM, gait further Focus distance using FWW. Precautions Other Precautions WBAT LLE Recommendations To Nursing Amount of Assist Needed 1 Person Assist Discharge Recommendations PT Discharge Recommendations Home with Assistance,Home Health Other Discharge Recommendations BSC for night use and over toilet at daytime for assist in standing to push from- pt stated can call local and acquire. Pt stated doesn't have shower bench and shower doors not removable, will sponge bath at this time. SPOUT LINER recommended shower bench if had clearance to takedoors off for showering, pt declined. Transportation Needs at Discharge Private Vehicle
--- NOTE | 2021-03-25 15:06 | CM.DANOTE ---
DCP Note: Received call from Gwendolyn Polanco re: call from patient about home health. PUMPER BREWERY placed call to [facility] spoke with Mary Ann. She reports that they are unable to accommodate HH referral. Mary Ann reports that because [facility] cannot do referral but accepted referral on 03-24-21 that they will arrange HH for this patient with another agency. Mary Ann left this afternoon informing PUMPER BREWERY that home health for this patient secured with [facility]. P: Call received after patient discharged from .. Home health secured through [facility]. [facility] notified patient via telephone. ROBEL
== END 2021-03-24 13:15 | disposition home or self-care (01) ==
LOC: OR 12:10 → AC 12:10
PROVIDERS: Admitting Provider Orthopaedic Surgery; PCP Student in an Organized Health Care Education/Training Program; Referring Provider Orthopaedic Surgery; Visit Provider Orthopaedic Surgery
PROC: 0SRD0JZ Replacement of Left Knee Joint with Synthetic Substitute, Open Approach (ICD-10-PCS; CPT 27447; principal; 2021-03-22 10:15)
DX: M17.12 Unilateral primary osteoarthritis, left knee (principal); I10 Essential (primary) hypertension; E78.5 Hyperlipidemia, unspecified; N18.30 Chronic kidney disease, stage 3 unspecified; R11.0 Nausea; G47.30 Sleep apnea, unspecified; E03.9 Hypothyroidism, unspecified; G40.909 Epilepsy, unspecified, not intractable, without status epilepticus; E11.9 Type 2 diabetes mellitus without complications; Z79.84 Long term (current) use of oral hypoglycemic drugs
CPT/HCPCS: 27447; 36415; 73560; 82962; 85014; 85018; 97110; 97116; 97162; 97530; C1776; G0378; C9290; J0690; J1815; J2250; J2270; J2274; J2405; J3010

== ENCOUNTER → 2021-04-20 12:24 | Outpatient (CLI) | payer MEDICARE, SELFPAY ==
[2021-03-22 13:25] VITALS: BMI 29.5
[2021-04-20 13:07] LABS: Hematocrit 32.4 % (36-46); Hemoglobin 10.4 g/dL (12.0-16.0)
[2021-04-20 13:12] LABS: BUN Creatinine Ratio 13.7 (6-22); Blood Urea Nitrogen 29 mg/dL (7-17); Calcium 9.7 mg/dL (8.4-10.2); Carbon Dioxide 25 mmol/L (22-32); Chloride 106 mmol/L (98-107); Estimated Glomerular Filt Rate 22.7 mL/min (>60); Glucose 88 mg/dL (80-110); HEMOLYSIS < 15 (0-50); Potassium 4.5 mmol/L (3.4-5.1); Sodium 139 mmol/L (137-145)
[2021-04-20 15:16] LABS: Creatinine Urine Random 143.2 mg/dL; Protein (Total) Urine Random 27 mg/dL (0-12); Protein Creatinine Ratio Urine 0.18 GRAM/24H
[2021-04-21 07:36] LABS: Parathyroid Hormone Int 96 pg/mL (15-65)
== END ==
PROVIDERS: PCP Student in an Organized Health Care Education/Training Program; Referring Provider Student in an Organized Health Care Education/Training Program; Visit Provider Student in an Organized Health Care Education/Training Program
DX: N05.9 Unspecified nephritic syndrome with unspecified morphologic changes (principal); D64.9 Anemia, unspecified; N25.81 Secondary hyperparathyroidism of renal origin; R80.9 Proteinuria, unspecified
CPT/HCPCS: 36415; 80048; 82570; 83970; 84156; 85014; 85018

== ENCOUNTER → 2021-05-17 11:28 | Outpatient (CLI) | payer MEDICARE, SELFPAY ==
[2021-03-22 13:25] VITALS: BMI 29.5
[2021-05-17 13:02] LABS: BUN Creatinine Ratio 13.3 (6-22); Blood Urea Nitrogen 25 mg/dL (7-17); Calcium 9.7 mg/dL (8.4-10.2); Carbon Dioxide 26 mmol/L (22-32); Chloride 103 mmol/L (98-107); Estimated Glomerular Filt Rate 25.9 mL/min (>60); Glucose 148 mg/dL (80-110); HEMOLYSIS < 15 (0-50); Potassium 4.8 mmol/L (3.4-5.1); Sodium 138 mmol/L (137-145)
[2021-05-17 16:28] LABS: Creatinine Urine Random 165.1 mg/dL; Protein (Total) Urine Random 62 mg/dL (0-12); Protein Creatinine Ratio Urine 0.37 GRAM/24H
== END ==
PROVIDERS: PCP Student in an Organized Health Care Education/Training Program; Referring Provider Student in an Organized Health Care Education/Training Program; Visit Provider Student in an Organized Health Care Education/Training Program
DX: R80.9 Proteinuria, unspecified (principal); N05.9 Unspecified nephritic syndrome with unspecified morphologic changes
CPT/HCPCS: 36415; 80048; 82570; 84156

== ENCOUNTER → 2021-07-29 11:22 | Outpatient (CLI) | payer MEDICARE, SELFPAY ==
[2021-03-22 13:25] VITALS: BMI 29.5
[2021-07-29 12:16] LABS: Hemoglobin A1C% w Est Avg Glu 5.6 % (4.0-6.0)
[2021-07-29 12:25] LABS: Alanine Aminotransferase 15 IU/L (<35); Albumin 4.3 g/dL (3.5-5.0); Albumin Globulin Ratio 1.9 (1.0-2.8); Alkaline Phosphatase 80 U/L (38-126); Aspartate Aminotransferase 18 IU/L (14-36); Bilirubin Total 0.4 mg/dL (0.2-1.3); Blood Urea Nitrogen 19 mg/dL (7-17); Carbon Dioxide 26 mmol/L (22-32); Chloride 109 mmol/L (98-107); Estimated Glomerular Filt Rate 28.5 mL/min (>60); Globulin 2.3 g/dL (1.7-4.1); Glucose 132 mg/dL (80-110); HEMOLYSIS < 15 (0-50); Potassium 4.1 mmol/L (3.4-5.1); Sodium 141 mmol/L (137-145); Total Protein 6.6 g/dL (6.3-8.2)
[2021-07-29 13:59] LABS: Creatinine Urine Random 60.3 mg/dL
[2021-07-29 14:34] LABS: Microalbumi Creatinin Ratio Ur 1200.6 ug/mg CR (<30); Microalbumin Urine Random 72.4 mg/dL (0-1.6)
== END ==
PROVIDERS: PCP Student in an Organized Health Care Education/Training Program; Referring Provider Student in an Organized Health Care Education/Training Program; Visit Provider Student in an Organized Health Care Education/Training Program
DX: E11.22 Type 2 diabetes mellitus with diabetic chronic kidney disease (principal); N18.4 Chronic kidney disease, stage 4 (severe)
CPT/HCPCS: 36415; 80053; 82043; 82570; 83036

== ENCOUNTER → 2021-10-07 11:02 | Outpatient (CLI) | payer MEDICARE, SELFPAY ==
[2021-03-22 13:25] VITALS: BMI 29.5
[2021-10-07 12:12] LABS: Hematocrit 38.6 % (36-46); Hemoglobin 12.4 g/dL (12.0-16.0)
[2021-10-07 12:32] LABS: BUN Creatinine Ratio 11.7 (6-22); Blood Urea Nitrogen 20 mg/dL (7-17); Calcium 9.5 mg/dL (8.4-10.2); Carbon Dioxide 24 mmol/L (22-32); Chloride 107 mmol/L (98-107); Estimated Glomerular Filt Rate 28.9 mL/min (>60); Glucose 121 mg/dL (80-110); HEMOLYSIS < 15 (0-50); Potassium 4.2 mmol/L (3.4-5.1); Sodium 139 mmol/L (137-145)
[2021-10-07 13:53] LABS: Creatinine Urine Random 100.5 mg/dL; Protein (Total) Urine Random 141 mg/dL (0-12)
[2021-10-08 07:47] LABS: Parathyroid Hormone Int 105 pg/mL (15-65)
== END ==
PROVIDERS: PCP Student in an Organized Health Care Education/Training Program; Referring Provider Student in an Organized Health Care Education/Training Program; Visit Provider Student in an Organized Health Care Education/Training Program
DX: N05.9 Unspecified nephritic syndrome with unspecified morphologic changes (principal); D64.9 Anemia, unspecified; N25.81 Secondary hyperparathyroidism of renal origin; R80.9 Proteinuria, unspecified
CPT/HCPCS: 36415; 80048; 82570; 83970; 84156; 85014; 85018

== ENCOUNTER → 2021-10-28 16:26 | Outpatient (CLI) | payer MEDICARE, SELFPAY ==
[2021-03-22 13:25] VITALS: BMI 29.5
[2021-11-05 10:09] LABS: Levetiracetam Keppra 26.3 ug/mL (10.0-40.0)
== END ==
PROVIDERS: PCP Student in an Organized Health Care Education/Training Program; Referring Provider Psychiatry & Neurology Neurology; Visit Provider Psychiatry & Neurology Neurology
DX: G40.109 Localization-related (focal) (partial) symptomatic epilepsy and epileptic syndromes with simple partial seizures, not intractable, without status epilepticus (principal)
CPT/HCPCS: 36415; 80177

== ENCOUNTER → 2021-11-17 10:24 | Outpatient (CLI) | payer MEDICARE, SELFPAY ==
[2021-03-22 13:25] VITALS: BMI 29.5
[2021-11-17 12:37] LABS: BUN Creatinine Ratio 12.4 (6-22); Blood Urea Nitrogen 24 mg/dL (7-17); Calcium 9.6 mg/dL (8.4-10.2); Carbon Dioxide 27 mmol/L (22-32); Chloride 105 mmol/L (98-107); Estimated Glomerular Filt Rate 25.1 mL/min (>60); Glucose 108 mg/dL (80-110); HEMOLYSIS < 15 (0-50); Potassium 4.5 mmol/L (3.4-5.1); Sodium 139 mmol/L (137-145)
[2021-11-17 12:38] LABS: Creatinine Urine Random 84.5 mg/dL; Protein (Total) Urine Random 77 mg/dL (0-12); Protein Creatinine Ratio Urine 0.91 GRAM/24H
== END ==
PROVIDERS: PCP Student in an Organized Health Care Education/Training Program; Referring Provider Student in an Organized Health Care Education/Training Program; Visit Provider Student in an Organized Health Care Education/Training Program
DX: N05.9 Unspecified nephritic syndrome with unspecified morphologic changes (principal); R80.9 Proteinuria, unspecified
CPT/HCPCS: 36415; 80048; 82570; 84156

== ENCOUNTER → 2022-01-25 10:57 | Outpatient (CLI) | payer MEDICARE, SELFPAY ==
[2021-03-22 13:25] VITALS: BMI 29.5
--- NOTE | 2022-01-25 | DI.MG.S_ITS ---
BILATERAL DIGITAL SCREENING MAMMOGRAM 3D/2D WITH CAD: 01/25/2022 CLINICAL: Routine screening. Personal history of right breast cancer. Family history of breast cancer. Comparison is made to exams dated: 01/20/2021 mammogram, 01/20/2020 mammogram, and 01/16/2019 mammogram - [facility]. The tissue of both breasts is heterogeneously dense. This may lower the sensitivity of mammography. Current study was also evaluated with a Computer Aided Detection (CAD) system. There are benign calcifications in both breasts. There also are benign post operative findings in the right breast. No significant masses, calcifications, or other findings are seen in either breast. There has been no significant interval change. IMPRESSION: BENIGN There is no mammographic evidence of malignancy. A 1 year screening mammogram is recommended. This exam was interpreted at Station ID: [id number]. NOTE: For mammograms, a report in lay terms will be sent to the patient. Approximately 15% of breast malignancies will not be visualized mammographically. In the management of a palpable breast mass, a negative mammogram must not discourage biopsy of a clinically suspicious lesion. Electronically Signed By: Valentín [email or web address]:01/25/2022 16:36:22 copy to: DOMINGO WOOD letter sent: Normal Exam ACR BI-RADS Category 2: Benign Finding(s) [id number]
== END ==
PROVIDERS: PCP Student in an Organized Health Care Education/Training Program; Referring Provider Student in an Organized Health Care Education/Training Program; Visit Provider Student in an Organized Health Care Education/Training Program
DX: Z12.31 Encounter for screening mammogram for malignant neoplasm of breast (principal); Z85.3 Personal history of malignant neoplasm of breast; Z80.3 Family history of malignant neoplasm of breast
CPT/HCPCS: 77063; 77067

== ENCOUNTER → 2022-03-04 12:31 | Outpatient (CLI) | payer MEDICARE, SELFPAY ==
[2021-03-22 13:25] VITALS: BMI 29.5
[2022-03-04 13:25] LABS: Hematocrit 34.7 % (36-46); Hemoglobin 11.7 g/dL (12.0-16.0)
[2022-03-04 13:35] LABS: BUN Creatinine Ratio 15.6 (6-22); Blood Urea Nitrogen 28 mg/dL (7-17); Calcium 8.4 mg/dL (8.4-10.2); Carbon Dioxide 23 mmol/L (22-32); Chloride 109 mmol/L (98-107); Estimated Glomerular Filt Rate 28 mL/min (>60); Glucose 135 mg/dL (80-110); HEMOLYSIS < 15 (0-50); Potassium 4.6 mmol/L (3.4-5.1); Sodium 140 mmol/L (137-145)
[2022-03-04 13:56] LABS: Creatinine Urine Random 156.1 mg/dL; Protein (Total) Urine Random 100 mg/dL (0-12); Protein Creatinine Ratio Urine 0.64 GRAM/24H
[2022-03-05 07:40] LABS: Parathyroid Hormone Int 102 pg/mL (15-65)
== END ==
PROVIDERS: PCP Student in an Organized Health Care Education/Training Program; Referring Provider Student in an Organized Health Care Education/Training Program; Visit Provider Student in an Organized Health Care Education/Training Program
DX: N05.9 Unspecified nephritic syndrome with unspecified morphologic changes (principal); D64.9 Anemia, unspecified; N25.81 Secondary hyperparathyroidism of renal origin; R80.9 Proteinuria, unspecified
CPT/HCPCS: 36415; 80048; 82570; 83970; 84156; 85014; 85018

== ENCOUNTER → 2022-06-23 10:00 | Outpatient (CLI) | payer MEDICARE, SELFPAY ==
[2021-03-22 13:25] VITALS: BMI 29.5
[2022-06-23 12:24] LABS: Creatinine Urine Random 55.9 mg/dL; Protein (Total) Urine Random 70 mg/dL (0-12); Protein Creatinine Ratio Urine 1.25 GRAM/24H
[2022-06-23 12:26] LABS: Hematocrit 34.8 % (36-46); Hemoglobin 11.6 g/dL (12.0-16.0)
[2022-06-23 14:02] LABS: BUN Creatinine Ratio 13.6 (6-22); Blood Urea Nitrogen 25 mg/dL (7-17); Calcium 9.2 mg/dL (8.4-10.2); Carbon Dioxide 25 mmol/L (22-32); Chloride 102 mmol/L (98-107); Estimated Glomerular Filt Rate 28 mL/min (>60); Glucose 114 mg/dL (80-110); HEMOLYSIS < 15 (0-50); Potassium 4.7 mmol/L (3.4-5.1); Sodium 137 mmol/L (137-145)
[2022-06-24 10:32] LABS: Parathyroid Hormone Int 121 pg/mL (15-65)
== END ==
PROVIDERS: PCP Student in an Organized Health Care Education/Training Program; Referring Provider Student in an Organized Health Care Education/Training Program; Visit Provider Student in an Organized Health Care Education/Training Program
DX: N05.9 Unspecified nephritic syndrome with unspecified morphologic changes (principal); D64.9 Anemia, unspecified; N25.81 Secondary hyperparathyroidism of renal origin; R80.9 Proteinuria, unspecified
CPT/HCPCS: 36415; 80048; 82570; 83970; 84156; 85014; 85018

== ENCOUNTER → 2022-08-08 09:18 | Outpatient (CLI) | payer MEDICARE, SELFPAY ==
[2021-03-22 13:25] VITALS: BMI 29.5
[2022-08-08 10:22] LABS: BUN Creatinine Ratio 14.4 (6-22); Blood Urea Nitrogen 25 mg/dL (7-17); Calcium 9.2 mg/dL (8.4-10.2); Carbon Dioxide 24 mmol/L (22-32); Chloride 106 mmol/L (98-107); Estimated Glomerular Filt Rate 29 mL/min (>60); Glucose 142 mg/dL (80-110); HEMOLYSIS < 15 (0-50); Potassium 4.2 mmol/L (3.4-5.1); Sodium 140 mmol/L (137-145)
[2022-08-08 10:23] LABS: Protein (Total) Urine Random 139 mg/dL (0-12); Protein Creatinine Ratio Urine 1.11 GRAM/24H
== END ==
PROVIDERS: PCP Student in an Organized Health Care Education/Training Program; Referring Provider Student in an Organized Health Care Education/Training Program; Visit Provider Student in an Organized Health Care Education/Training Program
DX: N05.9 Unspecified nephritic syndrome with unspecified morphologic changes (principal); R80.9 Proteinuria, unspecified
CPT/HCPCS: 36415; 80048; 82570; 84156

== ENCOUNTER → 2022-09-30 12:12 | Outpatient (CLI) | payer MEDICARE, SELFPAY ==
[2021-03-22 13:25] VITALS: BMI 29.5
[2022-09-30 13:12] LABS: BUN Creatinine Ratio 14.7 (6-22); Blood Urea Nitrogen 25 mg/dL (7-17); Calcium 9.3 mg/dL (8.4-10.2); Carbon Dioxide 22 mmol/L (22-32); Chloride 109 mmol/L (98-107); Estimated Glomerular Filt Rate 30 mL/min (>60); Glucose 121 mg/dL (80-110); HEMOLYSIS < 15 (0-50); Potassium 4.2 mmol/L (3.4-5.1); Sodium 137 mmol/L (137-145)
[2022-09-30 14:27] LABS: Creatinine Urine Random 131.3 mg/dL; Protein (Total) Urine Random 100 mg/dL (0-12); Protein Creatinine Ratio Urine 0.76 GRAM/24H
== END ==
PROVIDERS: PCP Student in an Organized Health Care Education/Training Program; Referring Provider Student in an Organized Health Care Education/Training Program; Visit Provider Student in an Organized Health Care Education/Training Program
DX: N05.9 Unspecified nephritic syndrome with unspecified morphologic changes (principal); R80.9 Proteinuria, unspecified
CPT/HCPCS: 36415; 80048; 82570; 84156

== ENCOUNTER → 2023-01-12 11:00 | Outpatient (CLI) | payer MEDICARE, SELFPAY ==
[2021-03-22 13:25] VITALS: BMI 29.5
[2023-01-12 12:36] LABS: Hematocrit 34.6 % (36-46); Hemoglobin 11.7 g/dL (12.0-16.0)
[2023-01-12 12:59] LABS: BUN Creatinine Ratio 10.8 (6-22); Blood Urea Nitrogen 21 mg/dL (7-17); Calcium 9.5 mg/dL (8.4-10.2); Carbon Dioxide 22 mmol/L (22-32); Chloride 107 mmol/L (98-107); Estimated Glomerular Filt Rate 26 mL/min (>60); Glucose 92 mg/dL (80-110); HEMOLYSIS < 15 (0-50); Potassium 4.3 mmol/L (3.4-5.1); Sodium 137 mmol/L (137-145)
[2023-01-12 15:04] LABS: Creatinine Urine Random 123.6 mg/dL; Protein (Total) Urine Random 63 mg/dL (0-12)
[2023-01-14 07:03] LABS: Parathyroid Hormone Int 81 pg/mL (15-65)
== END ==
PROVIDERS: PCP Student in an Organized Health Care Education/Training Program; Referring Provider Student in an Organized Health Care Education/Training Program; Visit Provider Student in an Organized Health Care Education/Training Program
DX: N05.9 Unspecified nephritic syndrome with unspecified morphologic changes (principal); D64.9 Anemia, unspecified; N25.81 Secondary hyperparathyroidism of renal origin; R80.9 Proteinuria, unspecified
CPT/HCPCS: 36415; 80048; 82570; 83970; 84156; 85014; 85018

== ENCOUNTER → 2023-03-06 15:29 | Outpatient (CLI) | payer MEDICARE, SELFPAY ==
[2021-03-22 13:25] VITALS: BMI 29.5
--- NOTE | 2023-03-06 15:29 | DI.MG.S_ITS ---
BILATERAL DIGITAL SCREENING MAMMOGRAM 3D/2D WITH CAD POST LUMPECTOMY: 03/06/2023 CLINICAL: Routine screening. Personal history of right breast cancer. Family history of breast cancer. Comparison is made to exams dated: 01/25/2022 mammogram, 01/20/2021 mammogram - [facility], 10/28/2022 mammogram - [facility], 01/20/2020 mammogram, and 01/16/2019 mammogram - [facility]. Both breasts are heterogeneously dense, which may obscure small masses (category c / 51-75% glandular tissue). Current study was also evaluated with a Computer Aided Detection (CAD) system. There are benign calcifications in both breasts. There also are benign post operative findings in the right breast. No significant masses, calcifications, or other findings are seen in either breast. There has been no significant interval change. IMPRESSION: BENIGN There is no mammographic evidence of malignancy. A 1 year screening mammogram is recommended. Future imaging is recommended as follows: 10/29/2023 screening mammogram. This exam was interpreted at Station ID: [id number]. NOTE: For mammograms, a report in lay terms will be sent to the patient. Approximately 15% of breast malignancies will not be visualized mammographically. In the management of a palpable breast mass, a negative mammogram must not discourage biopsy of a clinically suspicious lesion. Electronically Signed By: Freddie [email or web address]:03/07/2023 09:48:11 copy to: DOMINGO WOOD letter sent: Normal Exam ACR BI-RADS Category 2: Benign Finding(s) [id number]
== END ==
PROVIDERS: PCP Student in an Organized Health Care Education/Training Program; Referring Provider Student in an Organized Health Care Education/Training Program; Visit Provider Student in an Organized Health Care Education/Training Program
DX: Z12.31 Encounter for screening mammogram for malignant neoplasm of breast (principal); Z80.3 Family history of malignant neoplasm of breast; Z85.3 Personal history of malignant neoplasm of breast
CPT/HCPCS: 77063; 77067